=== PATIENT | male | born 1955 | race Caucasian/White ===

== ENCOUNTER 2018-01-05 09:53 | Outpatient (CLI) | payer OTHER | END 2018-01-05 09:54 | disposition home or self-care (01) | LOC: NS 09:53 | PROVIDERS: ATTEND Internal Medicine | DX: Z71.3 Dietary counseling and surveillance (principal); E11.9 Type 2 diabetes mellitus without complications; N18.3 Chronic kidney disease, stage 3 (moderate); Z79.84 Long term (current) use of oral hypoglycemic drugs | CPT/HCPCS: 97802 ==

== ENCOUNTER 2018-01-19 12:54 | Outpatient (CLI) | payer OTHER | END 2018-01-19 12:55 | disposition home or self-care (01) | LOC: NS 12:54 | PROVIDERS: ATTEND Internal Medicine | DX: Z71.3 Dietary counseling and surveillance (principal); E11.9 Type 2 diabetes mellitus without complications; N18.3 Chronic kidney disease, stage 3 (moderate); Z79.84 Long term (current) use of oral hypoglycemic drugs | CPT/HCPCS: 97803 ==

== ENCOUNTER 2018-02-10 13:06 | Outpatient (CLI) | payer OTHER ==
--- NOTE | 2018-02-10 15:00 | XRAY Report ---
RIGHT RIBS: 02/10/2018 CLINICAL INDICATION: Pain. FINDINGS: Frontal and oblique views of the right ribs were obtained, with marker at the site of maximal tenderness. There is no evidence of a displaced rib fracture. No foreign body is seen in the soft tissues. IMPRESSION: NO EVIDENCE OF A DISPLACED RIB FRACTURE. TD: 02/10/2018 14:58
== END 2018-02-10 13:07 | disposition home or self-care (01) ==
LOC: DI 13:06
PROVIDERS: ATTEND Internal Medicine
DX: R07.81 Pleurodynia (principal)

== ENCOUNTER 2018-04-13 15:05 | Outpatient (CLI) | payer OTHER ==
--- NOTE | 2018-04-13 17:29 | Ultrasound Report ---
ULTRASOUND RIGHT WRIST: 04/13/2018 CLINICAL INDICATION: Palpable abnormality. TECHNIQUE: Real-time scanning was performed with bank representative static images obtained. FINDINGS: Ultrasound of the palpable abnormality in the dorsal right wrist was performed. At this site, there is a 3.3 x 0.6 x 2.0 cm fluid collection, likely representing a synovial cyst. No solid mass is identified. IMPRESSION: LIKELY SYNOVIAL CYST, ACCOUNTING FOR THE PALPABLE ABNORMALITY. TD: 04/13/2018 15:39
--- NOTE | 2018-04-14 10:28 | XRAY Report ---
FOUR VIEW RIGHT WRIST: 04/13/2018 CLINICAL INDICATION: Swelling, mass. FINDINGS: AP, lateral, oblique, scaphoid views of the right wrist demonstrate severe osteoarthritic changes. There is an old, nonunion fracture of the scaphoid, and subluxation of the first carpal row. No radiopaque foreign body is seen in the soft tissues. IMPRESSION: OLD, NONUNION SCAPHOID FRACTURE, WITH SUBLUXATION OF THE FIRST CARPAL ROW AND SEVERE OSTEOARTHRITIC CHANGES. TD: 04/14/2018 10:22
== END 2018-04-13 15:06 | disposition home or self-care (01) ==
LOC: DI 15:05
PROVIDERS: ATTEND Internal Medicine
DX: M19.031 Primary osteoarthritis, right wrist (principal)
CPT/HCPCS: 76882

== ENCOUNTER 2020-07-10 12:47 | Outpatient (CLI) | payer MEDICARE ==
--- NOTE | 2020-07-10 16:39 | MRI Report ---
PROCEDURE: Lumbar Spine W/O INDICATIONS: PROGRESSIVE IMBALANCE,NUMBNESS/TINGLING IN LEGS TECHNIQUE: Noncontrast sagittal T1 spin echo and T2 fast echo, sagittal STIR, axial T1 and T2 fast spin echo thr ough the lumbar spine. In cases with scoliosis, additional coronal T2 fast spin echo may be performe d. COMPARISON: None. FINDINGS: Image quality: Excellent. Alignment and Curvature: There is straightening of normal lumbar curvature. There is trace retrolist hesis of L5 on S1. Bone Marrow: Marrow is of normal overall signal. Increased T1 and T2 signal are present at L2, L5 an d S1 suggestive of hemangiomas. Mild reactive endplate changes are present at L5-S1, minimal througho ut the remainder of the lumbar spine. No acute vertebral body compression fractures. Spinal Cord: Conus medullaris terminates at the L1 level. Visualized cord demonstrates normal signa l and size. Paraspinous Soft Tissues: No paravertebral masses. Discs: Moderate to severe desiccation is present from L3-4 through L5-S1, mild at L1-L2, L2-3. L1-L2: Minimal disc bulge without spinal stenosis or foraminal narrowing. Mild facet and ligamentu m flavum hypertrophy. L2-L3: Mild disc bulge with minimal canal narrowing. Mild rightforaminal narrowing. Facet and liga mentum flavum hypertrophy are present. L3-L4: Mild disc bulge with mild spinal stenosis. No foraminal narrowing. Facet and ligamentum flav um hypertrophy are present. L4-L5: Mild disc bulge with minimal to mild spinal stenosis. Minimal to mild bilateral foraminal na rrowing with facet and ligamentum flavum hypertrophy. L5-S1: Mild disc bulge including a left foraminal component. Mild to moderate spinal stenosis is pr esent. Severe right and moderate to severe left foraminal narrowing with slight nerve root surroundin g through the subarticular recess on the right. Facet hypertrophy is present. IMPRESSION: 1. Multilevel spinal stenosis overall most prominent at L3-4 secondary to disc bulge with contributin g effect of facet/ligamentum flavum arthropathy. 2. Multilevel foraminal narrowing most severe at L5-S1 secondary to retrolisthesis as well as facet a rthropathy. Reviewed by: Tori Bocanegra MD on 07/10/2020 4:37 PM PDT Approved by: Tori Bocanegra MD on 07/10/2020 4:37 PM PDT Station ID: [id number]
== END 2020-07-10 12:48 | disposition home or self-care (01) ==
LOC: DI 12:47
PROVIDERS: ATTEND Psychiatry & Neurology Neurology
DX: M43.17 Spondylolisthesis, lumbosacral region (principal); M51.36 Other intervertebral disc degeneration, lumbar region; M51.37 Other intervertebral disc degeneration, lumbosacral region; M47.816 Spondylosis without myelopathy or radiculopathy, lumbar region; M47.817 Spondylosis without myelopathy or radiculopathy, lumbosacral region; M48.061 Spinal stenosis, lumbar region without neurogenic claudication; M48.07 Spinal stenosis, lumbosacral region
CPT/HCPCS: 72148

== ENCOUNTER 2020-07-12 14:06 | Outpatient (CLI) | payer MEDICARE | END 2020-07-12 14:07 | disposition home or self-care (01) | LOC: LAB 14:06 | PROVIDERS: ATTEND Surgery | DX: Z01.812 Encounter for preprocedural laboratory examination (principal); K43.9 Ventral hernia without obstruction or gangrene; Z20.828 Contact with and (suspected) exposure to other viral communicable diseases | CPT/HCPCS: 93005; U0004 ==

== ENCOUNTER 2020-07-17 06:38 | Day surgery (SDC) | payer MEDICARE ==
[~2020-07-17 06:38] MED LIST: CEFAZOLIN SODIUM IN 0.9 % NACL 2 GM/100 ML BAG IV ONE
[2020-07-17] MEDS ORDERED: LACTATED RINGERS 1,000 ML IV ONE ×3 (06:55→10:40)
[2020-07-17] MEDS ORDERED: BUPIVACAINE 0.5% PF 30 ML VIAL SUBQ ONE ×2 (07:13→09:40)
--- NOTE | 2020-07-17 07:13 | ANESTHESIA ---
Pre-Anesthesia VS, & Labs - Diagnosis incisional hernia - Procedure Incisional hernia repair Vital Signs: Temp Pulse Resp BP Pulse Ox 36.9 C 55 L 18 126/81 H 96 07/17/20 06:56 07/17/20 06:56 07/17/20 06:56 07/17/20 06:56 07/17/20 06:56 Height 5 ft 9 in Weight (kg) 101.3 kg Body Mass Index 37.6 - NPO >8 hours - Lab Results Current Lab Results: Laboratory Tests 07/17/20 07:06: POC Whole Bld Glucose 119 H Lab results reviewed: Yes Home Medications and Allergies Home Medications: Ambulatory Orders Carvedilol 6.25 mg PO BID 07/12/20 Hydrochlorothiazide 12.5 mg PO DAILY 07/12/20 Losartan Potassium 25 mg PO QPM 07/12/20 oxyCODONE/ACET 5/325 [Percocet 5 mg/325 mg] 2 each PO Q4-6H MDD pain 07/12/20 Acetaminophen [Tylenol] 650 mg PO Q6H PRN 04/10/18 Amlodipine Besylate 10 mg PO DAILY 04/10/18 Aspirin 81 mg PO DAILY 04/10/18 Benzonatate 200 mg PO ONCE 04/10/18 Celecoxib 100 mg PO BID 04/10/18 Cetirizine [ZyrTEC] 10 mg PO DAILY 04/10/18 Fluticasone/Salmeterol [Advair 250-50 Diskus] 2 puffs IH DAILY 04/10/18 Ibuprofen [Motrin Ib] 200 mg PO TID PRN 04/10/18 Metformin HCl 1,000 mg PO BID 04/10/18 Pantoprazole Sodium 40 mg PO DAILY 04/10/18 Simvastatin 40 mg PO QPM 04/10/18 Carvedilol 6.25 mg PO BID 07/12/20 Hydrochlorothiazide 12.5 mg PO DAILY 07/12/20 Losartan Potassium 25 mg PO QPM 07/12/20 oxyCODONE/ACET 5/325 [Percocet 5 mg/325 mg] 2 each PO Q4-6H MDD pain 07/12/20 Allergies/Adverse Reactions: Allergies Allergy/AdvReac Type Severity Reaction Status Date / Time No Known Drug Allergies Allergy Verified 04/10/18 16:42 Anes History & Medical History - Anesthetic History Anesthesia Complications: reports: No previous complications Family history of Anesthesia Complications: Denies Family history of Malignant Hyperthermia: Denies - Medical History Cardiovascular: reports: Pulmonary embolism Pulmonary: reports: Asthma Gastrointestinal: reports: GERD, Diverticulitis Urinary: reports: Kidney stones Neuro: reports: Headaches, Migraines Musculoskeletal: reports: Osteoarthritis, Other Endocrine/Autoimmune: reports: Type 2 diabetes Smoking Status: Never smoker Other Past Medical History: Hx C3-5 ACDF - Surgical History General: Cholecystectomy, Bowel surgery, Other Eyes Ears Nose Throat (EENT): Tonsil/Adenoidectomy Urologic: Ureterolithotomy (stones) Orthopedic: Carpal Tunnel surgery, Spine surgery, Other Exam General: Alert, Oriented x3, Cooperative, No acute distress Dental: WNL Mouth Openin Fingerbreadth Neck Mobility: Reduced (slightly reduced, hx of ACDF, Still has decent neck extension with no pain or parathesia) Mallampati classification: II Respiratory: Lungs clear, Normal breath sounds Cardiovascular: Regular rate, Normal S1, Normal S2, No murmurs Plan Anesthesia Type: General, Epidural, Transverse Abdominis Plane (TAP) Block Regional Block: Per Surgeon's request for Post Op pain control Consent for Procedure(s) Verified and Reviewed: Yes Code Status: Attempt Resuscitation ASA classification: 3-Severe systemic disease Is this case an emergency?: No
[2020-07-17] MEDS ORDERED: LIDOCAINE 1%-EPI 1:100000 20 ML MDV SUBQ ONE ×2 (07:14→09:40)
[2020-07-17] MEDS ORDERED: MORPHINE 2 MG/ML CARPUJECT IVP PRN (07:22)
[2020-07-17] MEDS ORDERED: ePHEDrine 50 MG/ML VIAL IVP PRN (07:22)
[2020-07-17] MEDS ORDERED: ONDANSETRON 4 MG/2 ML VIAL IVP PRN ×2 (07:22→09:54)
[2020-07-17] MEDS ORDERED: METOCLOPRAMIDE 10 MG/2 ML VIAL IVP PRN (07:22)
[2020-07-17] MEDS ORDERED: ATROPINE ABBOJECT 1 MG/10 ML SYRINGE IVP PRN (07:22)
[2020-07-17] MEDS ORDERED: HYDROmorphone 0.5 MG/0.5 ML SYRINGE IVP PRN ×2 (07:22→09:47)
[2020-07-17] MEDS ORDERED: fentaNYL 100 MCG/2 ML VIAL IVP PRN (07:22)
[2020-07-17] MEDS ORDERED: NALOXONE 0.4 MG/ML VIAL IVP PRN (07:22)
[2020-07-17] MEDS ORDERED: BUPIVACAINE 0.5% PF 30 ML VIAL ONE (07:31)
[2020-07-17] MEDS ORDERED: LIDOCAINE 1%-EPI 1:100000 20 ML MDV ONE (07:31)
[2020-07-17] MEDS ORDERED: PROPOFOL 200 MG/20 ML VIAL IVP ONE (07:57)
[2020-07-17] MEDS ORDERED: NEOSTIGMINE 1 MG/1 ML 10 ML MDV IVP ONE (07:57)
[2020-07-17] MEDS ORDERED: GLYCOPYRROLATE 1 MG/5 ML VIAL IVP ONE (07:57)
[2020-07-17] MEDS ORDERED: DEXAMETHASONE 4 MG/ML VIAL IVP ONE (07:57)
[2020-07-17] MEDS ORDERED: LIDOCAINE-MPF 2% 5 ML VIAL IM ONE (07:57)
[2020-07-17] MEDS ORDERED: MIDAZOLAM 2 MG/2 ML VIAL IVP ONE (07:57)
[2020-07-17] MEDS ORDERED: fentaNYL 100 MCG/2 ML VIAL IVP ONE (07:57)
[2020-07-17] MEDS ORDERED: ONDANSETRON 4 MG/2 ML VIAL IVP ONE (07:57)
[2020-07-17] MEDS ORDERED: LACTATED RINGERS 1,000 ML IV SCH (08:00)
[2020-07-17] MEDS ORDERED: oxyCODONE 5 MG TABLET PO PRN (09:47)
[2020-07-17] MEDS ORDERED: SODIUM CHLORIDE FLUSH 0.9% 10 ML SYRINGE IVP PRN (09:47)
--- NOTE | 2020-07-17 10:11 | OPERATIVE REPORT ---
Operative Report - General Procedure Date: 07/17/20 Planned Procedure: Open incisional hernia repair with mesh Pre-Op Diagnosis: Incisional hernia Procedure Performed: Open incisional hernia repair with Ventralight ST mesh Post Op Diagnosis: Incisional hernia - Procedure Note Primary Surgeon: Sherly Anesthesia Provider: Santiago Anesthesia Technique: General LMA, Regional block Pathology: None Estimated Blood Loss (mL): 20 Indications: Painful hernia interfering with activities of daily living Findings: 10 x 13 cm incisional hernia superior to the umbilicus with a large sack containing large and small bowel and omentum Complications: None apparent - Other Other Information/Narrative: After obtaining informed consent, the patient was taken to the operating room and placed him in the supine position on the operating table. Following successful induction of general anesthesia, appropriate padding of all bony prominences and placement of appropriate monitors, the abdomen was prepped and draped in the standard surgical fashion. A time out was held per SCOAP protocol. All elements of the surgical safety checklist were followed before, during, and after the procedure. Following infiltration with local anesthetic create a field block, the upper abdominal incision was recreated and carried through the skin and subcutaneous tissue to the henia sack below. The sack was then carefully dissected from the overlying skin and underlying fascia and abdominal cavity. This required lysis of adhesion of 60 minutes to free the intraabdominal structures from the sack and create clear space on the internal abdominal wall for placement of the mesh. Once this process was complete, the defect was measured and determined to be 10 x 13 cm. I elected to repair the defect with a 15 x 20 cm graft of Ventralight ST mesh. 4 anchor sutures were placed through the mesh and then through the fascia at 12, 3, 6, and 9 o'clock. The internal scaffolding of the mesh was removed and the sutures tied. The edge of the mesh was then sewn to the posterior fascia with running suture. The repair was checked for defects The wound was irrigated with warm saline solution and aspirated free of all fluid and particulate matter. The abdominal wall was close in layers and the skin was reapproximate with an Insorb 2030 stapler. Dermabond was applied to the skin. All sponge, needle, and instrument counts were correct at the conclusion of the case. Anesthesia provided a TAP block with ultrasound guidance, The patient was allowed to awaken from anesthesia without difficulty and taken to the post anesthesia care unit in good condition.
--- NOTE | 2020-07-17 10:30 | ANESTHESIA POST OP EVALUATION ---
Anesthesia Post Eval - Post Anesthesia Eval Vitals: Last Vital Signs Temp 36.7 C 07/17/20 10:27 Pulse 60 07/17/20 10:27 Resp 17 07/17/20 10:27 BP 108/68 07/17/20 10:27 Pulse Ox 93 07/17/20 10:27 CV Function Including HR & BP: positive: Stable Pain Control: positive: Satisfactory Nausea & Vomiting: positive: Negative Mental Status: positive: Baseline Respiratory Status: Airway Patent Hydration Status: Satisfactory Anesthesia Complications: positive: None
[2020-07-17] MEDS: MULTIVITAMIN 10 ML, FOLIC ACID INJ 1 MG, THIAMINE INJ 100 MG, MAGNESIUM SULFATE 2 GM in... IV SCH ×5 (11:34)
[2020-07-17] MEDS: KETOROLAC 15 MG/ML VIAL IVP SCH ×2 (11:57→18:07)
[2020-07-17] MEDS ORDERED: CYANOCOBALAMIN 1,000 MCG/ML VIAL IM ONE (12:00)
--- NOTE | 2020-07-17 13:03 | PHARMACY PROGRESS NOTE ---
- Best Possible Medication History Admit Date and Time: Processed by: Pharmacy Medication History completed: Yes Patient Interview: Completed Secondary Source(s): Written medication list, Pharmacy records, Insurance records As the person ultimately responsible for medication therapy, providers are able to order a medication from an existing home medication list in [facility] via the "Reconcile Routine" prior to Confirmation of that medication by java support engineer. Such practice is discouraged except when the physician, in their clinical judgment, deems that a medical need exists for a medication without regard to previous use.
[2020-07-17] MEDS: ACETAMINOPHEN 1,000 MG/100 ML 100 ML IV SCH ×2 (13:52→20:20)
[2020-07-17] MEDS: ceFAZolin 2 GM in SODIUM CHLORIDE 0.9% 100ML 100 ML IV SCH (16:44)
[2020-07-17] MEDS: metFORMIN 500 MG TABLET PO SCH (16:52)
[2020-07-17] MEDS: SODIUM CHLORIDE FLUSH 0.9% 10 ML SYRINGE IVP SCH (16:53)
[2020-07-17] MEDS ORDERED: BUDESONIDE 0.5 MG/2 ML NEB INH SCH (19:00)
[2020-07-17] MEDS ORDERED: FORMOTEROL FUMARATE NEB 20 MCG/2 ML INH SCH (19:00)
[2020-07-17] MEDS: carvediloL 3.125 MG TABLET PO SCH (20:39)
[2020-07-17] MEDS: polyethylene glycoL 3350 17 GM PACKET PO SCH (20:41)
[2020-07-17] MEDS ORDERED: LOSARTAN 50 MG TABLET PO SCH (21:00)
[2020-07-17] MEDS ORDERED: ATORVASTATIN 10 MG TABLET PO SCH (21:00)
[2020-07-17] MEDS ORDERED: SODIUM CHLORIDE 0.9% 100ML 100 ML IV ONE (23:52)
[2020-07-18] MEDS: ceFAZolin 2 GM in SODIUM CHLORIDE 0.9% 100ML 100 ML IV SCH (00:06)
[2020-07-18] MEDS: SODIUM CHLORIDE FLUSH 0.9% 10 ML SYRINGE IVP SCH ×2 (00:06→08:51)
[2020-07-18] MEDS: KETOROLAC 15 MG/ML VIAL IVP SCH ×3 (00:06→11:52)
[2020-07-18] MEDS: ACETAMINOPHEN 1,000 MG/100 ML 100 ML IV SCH ×4 (01:54→13:14)
[2020-07-18] MEDS ORDERED: PANTOPRAZOLE 40 MG TABLET PO SCH (07:00)
[2020-07-18] MEDS: polyethylene glycoL 3350 17 GM PACKET PO SCH (08:22)
[2020-07-18] MEDS: carvediloL 3.125 MG TABLET PO SCH (08:23)
[2020-07-18] MEDS: MULTIVITAMIN 10 ML, FOLIC ACID INJ 1 MG, THIAMINE INJ 100 MG, MAGNESIUM SULFATE 2 GM in... IV SCH ×5 (08:30)
[2020-07-18] MEDS: metFORMIN 500 MG TABLET PO SCH (08:50)
[2020-07-18] MEDS ORDERED: CETIRIZINE 10 MG TABLET PO SCH (09:00)
[2020-07-18] MEDS ORDERED: ENOXAPARIN 40 MG/0.4 ML SYRINGE SUBQ SCH (09:00)
[2020-07-18] MEDS ORDERED: hydroCHLOROthiazide 12.5 MG CAPSULE PO SCH (09:00)
[2020-07-18 13:15] VITALS: BP 125/76
[2020-07-18] MEDS ORDERED: IBUPROFEN 600 MG TABLET PO PRN (13:30)
[2020-07-18] MEDS ORDERED: ONDANSETRON 4 MG/2 ML VIAL IVP PRN (13:30)
[2020-07-18] MEDS ORDERED: ACETAMINOPHEN 325 MG TABLET PO PRN (13:30)
[2020-07-18] MEDS ORDERED: oxyCODONE 5 MG TABLET PO PRN (13:30)
== END 2020-07-18 14:44 | disposition home or self-care (01) ==
LOC: SDS 06:38 → MS2 10:39 → SDS 07-18 14:44
PROVIDERS: ATTEND Surgery
PROC: 0WUF0JZ Supplement Abdominal Wall with Synthetic Substitute, Open Approach (ICD-10-PCS; principal; 2020-07-17 07:30)
DX: K43.2 Incisional hernia without obstruction or gangrene (principal); E11.9 Type 2 diabetes mellitus without complications; I10 Essential (primary) hypertension; J45.909 Unspecified asthma, uncomplicated; Z79.84 Long term (current) use of oral hypoglycemic drugs
CPT/HCPCS: 49560; 49568; A9270; J0131; J0690; J1650; J3411; J7120

== ENCOUNTER 2020-08-07 21:13 | Inpatient (IN) | payer MEDICARE ==
--- NOTE | 2020-08-07 21:28 | ED Physician Documentation ---
PD HPI FEVER - Stated complaint Stated Complaint: FEVER/DIZZY - History obtained from History obtained from: Patient - History of Present Illness Timing - onset: Enter time (02:30), Today Timing details: Abrupt onset Pain level now: 3 (generalized myalgias) Associated symptoms: Chills, Rigors, Other (mild nausea but no vomiting). No: Sinus pain, Sore throat, Dry cough, Productive cough, Chest pain, Dyspnea, Abdominal pain, Urinary symptoms Contributing factors: No: Sick contact, Travel Recently seen: Surgery (3 weeks ago (herniorrhaphy)) Review of Systems Constitutional: reports: Fever, Chills, Myalgias, Sweats Eyes: reports: Reviewed and negative Ears: reports: Reviewed and negative Nose: reports: Reviewed and negative Throat: reports: Reviewed and negative Cardiac: reports: Reviewed and negative Respiratory: reports: Dyspnea (mild). denies: Cough, Hemoptysis, Wheezing GI: reports: Nausea (mild), Constipation (chronic). denies: Abdominal Pain, Vomiting, Diarrhea : denies: Dysuria, Frequency Skin: denies: Rash Musculoskeletal: reports: Reviewed and negative Neurologic: reports: Generalized weakness. denies: Focal weakness, Numbness PD PAST MEDICAL HISTORY - Past Medical History Cardiovascular: Pulmonary embolism Respiratory: Asthma Neuro: Headaches, Migraines Endocrine/Autoimmune: Type 2 diabetes GI: GERD, Diverticulitis : Kidney stones HEENT: None Musculoskeletal: Osteoarthritis, Other - Past Surgical History General: Cholecystectomy, Bowel surgery, Other Ortho: Carpal Tunnel surgery, Spine surgery, Other HEENT: Tonsil/Adenoidectomy - Present Medications Home Medications: Ambulatory Orders Medication Instructions Recorded Confirmed Acetaminophen [Tylenol] 650 mg PO Q6H PRN 04/10/18 07/12/20 Amlodipine Besylate 10 mg PO DAILY 04/10/18 07/17/20 Aspirin 81 mg PO DAILY 04/10/18 07/17/20 Benzonatate 200 mg PO ONCE PRN 04/10/18 07/12/20 Celecoxib 100 mg PO BID 04/10/18 07/17/20 Cetirizine [ZyrTEC] 10 mg PO DAILY 04/10/18 07/17/20 Fluticasone/Salmeterol [Advair 2 puffs IH DAILY 04/10/18 07/17/20 250-50 Diskus] Ibuprofen [Motrin Ib] 200 mg PO TID PRN 04/10/18 07/12/20 Metformin HCl 1,000 mg PO BID 04/10/18 07/12/20 Pantoprazole Sodium 40 mg PO DAILY 04/10/18 07/17/20 Simvastatin 40 mg PO QPM 04/10/18 07/17/20 Carvedilol 6.25 mg PO BID 07/12/20 07/17/20 Hydrochlorothiazide 12.5 mg PO DAILY 07/12/20 07/17/20 Losartan Potassium 25 mg PO QPM 07/12/20 07/17/20 oxyCODONE/ACET 5/325 [Percocet 5 2 tab PO Q4-6H MDD pain 07/12/20 07/17/20 mg/325 mg] Cyanocobalamin (Vitamin B-12) 1 ml IM Q28D 07/17/20 07/17/20 [Cyanocobalamin Injection] oxyCODONE [Roxicodone] 5 mg PO Q4-6H PRN #10 tablet 07/18/20 - Allergies Allergies/Adverse Reactions: Allergies Allergy/AdvReac Type Severity Reaction Status Date / Time No Known Drug Allergies Allergy Verified 04/10/18 16:42 - Social History Smoking Status: Never smoker PD ED PE NORMAL - Vitals Vital signs reviewed: Yes - General General: Alert and oriented X 3, Well developed/nourished, Other (mild diaphoresis, appears mildly anxious) - HEENT HEENT: Moist mucous membranes - Neck Neck: Supple, no meningeal sign, No JVD - Respiratory Respiratory: No respiratory distress, Clear bilaterally - Abdomen Abdomen: Soft, Non tender, Non distended, Other (midline surgical incision site is c/d/i) - Back Back: No CVA TTP - Derm Derm: Normal color - Extremities Extremities: No edema PD ED PE EXPANDED - Cardiac Cardiac: Abnormal Rhythm (regular baseline with frequent extra beats, mostly paired beats). No: Murmur Present Results - Vitals Vitals: Vital Signs - 24 hr 08/07/20 08/07/20 08/07/20 21:15 21:31 21:41 Temperature 38.6 C H Heart Rate 100 91 76 Respiratory 25 H 14 22 Rate Blood Pressure 100/58 L 87/63 L 105/60 O2 Saturation 95 96 94 08/07/20 08/08/20 08/08/20 22:00 00:24 00:30 Temperature 36.5 C Heart Rate 77 80 Respiratory 21 24 Rate Blood Pressure 112/55 L 105/58 L O2 Saturation 94 95 Oxygen O2 Source Room air - EKG (time done) No standard instances Rate: Rate (enter#) (100) Rhythm: Other (atrial bigeminy) [place]: Normal Intervals: Normal DE QRS: Normal Ischemia: Normal ST segments - Labs Labs: Laboratory Tests 08/07/20 08/07/20 08/07/20 21:40 21:40 21:50 WBC 18.3 H RBC 5.05 Hgb 15.3 Hct 44.6 MCV 88.3 MCH 30.3 MCHC 34.3 RDW 13.7 Plt Count 216 MPV 9.2 Neut # (Auto) 15.2 H Lymph # (Auto) 1.3 L Keith # (Auto) 1.4 H Eos # (Auto) 0.1 Baso # (Auto) 0.1 Absolute Nucleated RBC 0.00 Nucleated RBC % 0.0 Sodium 136 Potassium 3.6 Chloride 101 Carbon Dioxide 21 Anion Gap 14.0 H BUN 18 Creatinine 1.2 Estimated GFR (MDRD) 61 L Glucose 142 H Lactic Acid 2.2 Calcium 9.2 Total Bilirubin 1.8 H AST 18 ALT 24 Alkaline Phosphatase 56 Total Protein 7.2 Albumin 3.7 Globulin 3.5 Albumin/Globulin Ratio 1.1 Urine Color Urine Clarity Urine pH Ur Specific [place] Urine Protein Urine Glucose (UA) Urine Ketones Urine Occult Blood Urine Nitrite Urine Bilirubin Urine Urobilinogen Ur Leukocyte Esterase Urine RBC Urine WBC Ur Squamous Epith Cells Urine Bacteria Urine Mucus Urine Culture Comments 08/07/20 23:18 WBC RBC Hgb Hct MCV MCH MCHC RDW Plt Count MPV Neut # (Auto) Lymph # (Auto) Keith # (Auto) Eos # (Auto) Baso # (Auto) Absolute Nucleated RBC Nucleated RBC % Sodium Potassium Chloride Carbon Dioxide Anion Gap BUN Creatinine Estimated GFR (MDRD) Glucose Lactic Acid Calcium Total Bilirubin AST ALT Alkaline Phosphatase Total Protein Albumin Globulin Albumin/Globulin Ratio Urine Color YELLOW Urine Clarity CLEAR Urine pH 7.0 Ur Specific [place] 1.020 Urine Protein TRACE Urine Glucose (UA) NEGATIVE Urine Ketones TRACE Urine Occult Blood NEGATIVE Urine Nitrite NEGATIVE Urine Bilirubin NEGATIVE Urine Urobilinogen 2 H Ur Leukocyte Esterase SMALL H Urine RBC 0-5 Urine WBC 11-25 H Ur Squamous Epith Cells RARE Squamous Urine Bacteria Rare Urine Mucus Moderate Strands Urine Culture Comments INDICATED - Rads (name of study) chest xray Radiology: Prelim report reviewed, See rad report CT A/P Radiology: Prelim report reviewed, See rad report PD MEDICAL DECISION MAKING - ED course Complexity details: reviewed old records, reviewed results, re-evaluated patient, considered differential, d/w patient, d/w family ED course: Early in ED stay, patient had episode of generalized weakness, nausea, feeling lightheaded and like he might pass out; this correlated with a single hypotensive SBP (upper 80s, although diastolic was in 60s). WBC 18.3 and febrile on presentation and thus sepsis protocol followed. Of note, his subsequent blood pressure readings were not hypotensive (fluid bolus had been started) and he looked well and reported feeling well on subsequent repeated reevaluations. His abdominal exam is benign; there is no tenderness, erythema, fluctuance. D/W Dr. Dubois including CT results; does not have findings on tests nor exam to suggest a source for his fever that would be related to his recent surgery. D/W Dr. Presley, accepts admission to hospitalist service. - Sepsis Event Current Stage of Sepsis: Sepsis Initial Hypotension: SBP less than 90 mmHg Possible source of Sepsis: Unknown Mental/Cognitive Status: Alert/Oriented X3 Capillary refill: Less than 2 seconds Peripheral Pulse Strength: 3+ Normal Peripheral Pulse Location: Radial Bedside ultrasound performed: No Departure - Departure Disposition: 66 [facility] DC/Xfer Clinical Impression: Fever Condition: Stable Discharge Date/Time: 08/08/20 01:45
[2020-08-07] MEDS ORDERED: SODIUM CHLORIDE 0.9% IV STA (21:50)
[2020-08-07 22:08] LABS: BASOPHILS # (AUTO) 0.1 10^3/uL (0.0-0.1); BASOPHILS % (AUTO) 0.4 %; EOSINOPHILS # (AUTO) 0.1 10^3/uL (0.0-0.7); EOSINOPHILS % (AUTO) 0.3 %; HGB - HEMOGLOBIN 15.3 g/dL (14.0-18.0); LYMPHOCYTES # (AUTO) 1.3 10^3/uL (1.5-3.5); LYMPHOCYTES % (AUTO) 7.2 %; MEAN CORPUSCULAR HEMOGLOBIN 30.3 pg (27.0-31.0); MEAN CORPUSCULAR HGB CONC 34.3 g/dL (32.0-36.0); MEAN CORPUSCULAR VOLUME 88.3 fL (80.0-94.0); MEAN PLATELET VOLUME 9.2 fL (7.4-11.4); MONOCYTES # (AUTO) 1.4 10^3/uL (0.0-1.0); MONOCYTES % (AUTO) 7.8 %; NEUTROPHILS # (AUTO) 15.2 10^3/uL (1.5-6.6); NEUTROPHILS % (AUTO) 83.2 %; PLT - PLATELET COUNT 216 10^3/uL (130-450); RED BLOOD COUNT 5.05 10^6/uL (4.70-6.10); RED CELL DISTRIBUTION WIDTH 13.7 % (12.0-15.0); WHITE BLOOD COUNT 18.3 x10^3/uL (4.8-10.8)
[2020-08-07] MEDS ORDERED: metroNIDAZOLE 500 MG/100 ML 500 MG/100 ML BAG IV STA (22:10)
[2020-08-07] MEDS ORDERED: VANCOMYCIN INJ 2.5 GM in SODIUM CHLORIDE 0.9% 500 ML IV STA (22:10)
[2020-08-07] MEDS ORDERED: CEFEPIME 2 GM in SODIUM CHLORIDE 0.9% MINIBAG 100 ML IV STA (22:10)
[2020-08-07 22:15] LABS: ALBUMIN 3.7 g/dL (3.2-5.5); ALBUMIN/GLOBULIN RATIO 1.1 (1.0-2.2); BILIRUBIN,TOTAL 1.8 mg/dL (0.2-1.0); CALCIUM 9.2 mg/dL (8.5-10.3); CREATININE 1.2 mg/dL (0.6-1.2); TOTAL PROTEIN 7.2 g/dL (6.7-8.2)
[2020-08-07] MEDS ORDERED: VANCOMYCIN 1 GM VIAL ONE ×2 (22:26→22:41)
[2020-08-07] MEDS ORDERED: IBUPROFEN 400 MG TABLET PO STA (22:28)
[2020-08-07] MEDS ORDERED: IOVERSOL 320 100 ML VIAL IVP ONE (23:41)
[2020-08-07 23:45] LABS: BACTERIA,URINE Rare /HPF (None Seen); BILIRUBIN,URINE NEGATIVE (NEGATIVE); CLARITY,URINE CLEAR (CLEAR); GLUCOSE, URINE (UA) NEGATIVE (NEGATIVE); KETONES,URINE (UA) TRACE mg/dL (NEGATIVE); LEUKOCYTE ESTERASE, URINE SMALL (NEGATIVE); MUCUS,URINE Moderate Strands; NITRITE,URINE NEGATIVE (NEGATIVE); OCCULT BLOOD,URINE NEGATIVE (NEGATIVE); PROTEIN,URINE TRACE mg/dL (NEGATIVE); RBC,URINE 0-5 /HPF (0-5); SQUAMOUS EPITHELIAL CELL,UR RARE Squamous (<= Few); UROBILINOGEN,URINE 2 E.U./dL (NORMAL)
[2020-08-08] MEDS ORDERED: IOVERSOL 320 100 ML VIAL IVP ONE (00:06)
[2020-08-08] MEDS ORDERED: ONDANSETRON 4 MG/2 ML VIAL IVP PRN (00:54)
--- NOTE | 2020-08-08 00:58 | HISTORY & PHYSICAL EXAMINATION ---
Chief Complaint - Chief Complaint Chief Complaint: Fever History of Present Illness - Admitted From Admitted From:: Home - History Obtained From Records Reviewed: Yes History obtained from: Patient, ER Physician, EMR - History of Present Illness HPI Comment/Other: This is a 64-year-old male with a past medical history significant for type 2 diabetes mellitus, hypertension, history of pulmonary embolism who presents today complaining of fever and chills that began at around 2 AM. He states he woke up to a.m. with severe rigors and chills and he noted that his temperature was over 102 F. He continue to measure his temperature throughout the day and it went as high as 104 F. He took NyQuil with improvement in his fever. His fever returned again and so he contacted his primary care provider who asked him to contact the [facility]. He was then asked to contact his surgeon given he had an incisional hernia repair on July 17. His surgeon's office recommended that he go to the emergency department if his fever persists greater than 102 F and this evening his temperature remained quite elevated. He reports a little nausea but no vomiting. He felt dizzy and lightheaded briefly while here in the emergency department when he was hypotensive but this has since resolved. He does report some dysuria but denies urgency/hematuria. He reports no abdominal pain. Denies any chest pain or dyspnea. He reports no recent sick contacts. He has not been leaving the house much but when he does he wears a mask on a regular basis. In the emergency department, he was found to be febrile with a temperature of 38.6 C. Initial heart rate is 100. His initial blood pressure is 100/58 and this decreased to 87/63. He was given over 2 L of lactated Ringer's with improvement in his blood pressure. He was not tachypneic and was saturating well on room air. His labs are significant for a white count of 18.3 with a left shift. His lactic acid was 2.2. He was checked for influenza which was negative. His urinalysis was suggestive of infection. He underwent a CT of the abdomen and pelvis with IV contrast which showed a fluid collection at the site of the hernia repair which is likely a seroma. There was concern for possible cystitis on imaging. He received vancomycin, cefepime, Flagyl IV in the emergency department. Given the above findings, medicine was consulted for admission. I did discuss goals of care wtih the patient and he would like to be a full code. History - Past Medical History Cardiovascular: reports: Pulmonary embolism Respiratory: reports: Asthma Neuro: reports: Headaches, Migraines Endocrine/Autoimmune: reports: Type 2 diabetes GI: reports: GERD, Diverticulitis : reports: Kidney stones HEENT: reports: None Musculoskeletal: reports: Osteoarthritis, Other MRSA Hx?: No - Past Surgical History General: reports: Cholecystectomy, Bowel surgery, Other (Hernia repair) Ortho: reports: Carpal Tunnel surgery, Spine surgery HEENT: reports: Tonsil/Adenoidectomy - Family & Social History Family History Comment/Other: He reports his father from myocardial infarction. He was also an alcoholic and smoked quite a bit. His mother from heart failure. Living arrangement: At home Living Situation: With spouse/s.o. Social History Notes: He lives at home with his , Mary. They moved to [facility] over 3 years ago after previously living in [place]. 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 He would travel to [facility] frequently for work. He has never smoked and does not drink alcohol at all. Meds/Allgy - Home Medications Home Medications: Ambulatory Orders Medication Instructions Recorded Confirmed Acetaminophen [Tylenol] 650 mg PO Q6H PRN 04/10/18 07/12/20 Amlodipine Besylate 10 mg PO DAILY 04/10/18 07/17/20 Aspirin 81 mg PO DAILY 04/10/18 07/17/20 Benzonatate 200 mg PO ONCE PRN 04/10/18 07/12/20 Celecoxib 100 mg PO BID 04/10/18 07/17/20 Cetirizine [ZyrTEC] 10 mg PO DAILY 04/10/18 07/17/20 Fluticasone/Salmeterol [Advair 2 puffs IH DAILY 04/10/18 07/17/20 250-50 Diskus] Ibuprofen [Motrin Ib] 200 mg PO TID PRN 04/10/18 07/12/20 Metformin HCl 1,000 mg PO BID 04/10/18 07/12/20 Pantoprazole Sodium 40 mg PO DAILY 04/10/18 07/17/20 Simvastatin 40 mg PO QPM 04/10/18 07/17/20 Carvedilol 6.25 mg PO BID 07/12/20 07/17/20 Hydrochlorothiazide 12.5 mg PO DAILY 07/12/20 07/17/20 Losartan Potassium 25 mg PO QPM 07/12/20 07/17/20 oxyCODONE/ACET 5/325 [Percocet 5 2 tab PO Q4-6H MDD pain 07/12/20 07/17/20 mg/325 mg] Cyanocobalamin (Vitamin B-12) 1 ml IM Q28D 07/17/20 07/17/20 [Cyanocobalamin Injection] oxyCODONE [Roxicodone] 5 mg PO Q4-6H PRN #10 tablet 07/18/20 - Allergies Allergies/Adverse Reactions: Allergies Allergy/AdvReac Type Severity Reaction Status Date / Time No Known Drug Allergies Allergy Verified 04/10/18 16:42 Review of Systems - Constitutional Constitutional: reports: Fatigue, Fever, Chills, Malaise - Ears, Nose & Throat Ears, Nose & Throat: denies: Nasal congestion, Sore throat - Cardiovascular Cariovascular: denies: Palpitations, Chest pain, Exertional dyspnea, Decr. exercise tolerance - Respiratory Respiratory: denies: Cough, SOB at rest, SOB with exertion - Gastrointestinal Gastrointestinal: reports: Diarrhea (Chronic), Nausea. denies: Abdominal pain, Constipation, Vomiting - Genitourinary Genitourinary: reports: Dysuria. denies: Frequency, Urgency, Hematuria, Flank pain - Musculoskeletal Musculoskeletal: denies: Muscle pain, Muscle weakness - Integumentary Integumentary: denies: Rash - Neurological Neurological: denies: General weakness, Focal weakness, Dizziness, Numbness - Hematologic/Lymphatic Hematologic/Lymphatic: denies: Bleeding tendencies - All Other Systems All Other Systems: reports: Reviewed and negative Prior Level of Functionality: He is independent with his ADLs. Exam - Vital Signs Reviewed Vital Signs: Yes Vital Signs: Vital Signs x48h Temp Pulse Resp BP Pulse Ox 08/08/20 00:30 80 24 105/58 L 95 08/08/20 00:24 36.5 C 08/07/20 22:00 77 21 112/55 L 94 08/07/20 21:41 76 22 105/60 94 08/07/20 21:31 91 14 87/63 L 96 08/07/20 21:15 38.6 C H 100 25 H 100/58 L 95 - Physical Exam General Appearance: positive: No acute distress, Alert Eyes Bilateral: positive: Normal inspection, Conjunctivae nml ENT: positive: ENT inspection nml Neck: positive: Nml inspection Respiratory: positive: No respiratory distress. negative: Wheezes, Rales Cardiovascular: positive: Regular rate & rhythm, No murmur, Extrasystoles. negative: Tachycardia, Bradycardia, Systolic murmur Abdomen: positive: Non-tender, No distention, Other (The incision site appears clean dry and intact. There does appear to be a fluid collection at the superior aspect of the incision. This is nontender. No erythema or purulent discharge noted.). negative: Tenderness Skin: positive: No rash, Warm, Dry Extremities: positive: Full ROM, No pedal edema Neurologic/Psychiatric: positive: Oriented x3, Motor nml. negative: Disoriented to person, Disoriented to place, Disoriented to time Sepsis Event Note (H) - Evaluation Current Stage of Sepsis: Sepsis Possible source of Sepsis: positive: Genitourinary - Sepsis Criteria Sepsis Criteria: Recorded Temperature greater than 38.3C or Less than 36C, R ecorded Heart Rate greater than 90 bpm, WBC count greater than 12,000 or less than 4000 Conclusion/Plan - Problem List (1) Sepsis Conclusion/Plan: This is believed to be secondary to urinary tract infection. His urinalysis is suggestive of infection. Presented with fevers, tachycardia, hypotension, leukocytosis. His lactic acid is normal. He was hypotensive but responded well to IV fluids. Influenza is negative. COVID is pending. CT of the abdomen pelvis did not reveal any other obvious source of infection. We will treat him empirically with vancomycin and meropenem IV. Tenuous IV hydration. We will follow up blood and urine cultures. Follow-up COVID testing. Trend his white count and monitor fever curve. (2) UTI (urinary tract infection) Conclusion/Plan: This is believed to be the source of his sepsis. His urinalysis suggestive of infection. Imaging did not reveal any obstruction but was concerning for cystitis. He does endorse dysuria. We will treat him empirically with meropenem and vancomycin IV. Follow-up urine culture and de-escalate antibiot ics as clinically indicated. (3) Abdominal wall seroma Conclusion/Plan: This is evident on CT of the abdomen and pelvis. Abdominal exam is unremarkable and do not suspect that this is infected at this time. We will continue to monitor and consult general surgery if necessary. (4) Type 2 diabetes mellitus Conclusion/Plan: He is on metformin at home. We will place him on a carb controlled diet and a sliding scale. (5) History of pulmonary embolism Conclusion/Plan: He has a history of a provoked pulmonary embolism back in 2012. He is no longer anticoagulation. Continue baby aspirin. (6) Hypertension Conclusion/Plan: He is on multiple antihypertensives at home. He is currently normotensive but was initially hypotensive upon arrival to the emergency department. He responded well to IV fluids. We will hold his home antihypertensives in the setting of sepsis. We will resume when clinically indicated. (7) Atrial bigeminy Conclusion/Plan: His EKG is consistent with atrial bigeminy. It is a sinus rhythm with frequent PACs. He is asymptomatic. We will check a TSH in the morning. We will resume his home carvedilol when his blood pressure can tolerate it. - Lab Results Lab results reviewed: Yes Fish Bones: 08/08/20 04:51 08/08/20 04:51 - Diagnostic Imaging Results Diagnostic Imaging Results: positive: Final report reviewed - EKG Results EKG Interpreted Independently: Yes EKG Findings: His EKG shows a sinus rhythm with frequent PACs consistent with atrial bigeminy. No obvious ischemic changes. Core Measures - Anticipated LOS I expect patient to be DC'd or transferred within 96 hours.: Yes - Issues Hospital Issues and Management Plan: 64-year-old male who presents today with fever found to be septic likely secondary to urinary tract infection. CT of the abdomen pelvis also revealed a seroma. Will treat with IV antibiotics and follow-up cultures. - DVT/VTE - Prophylaxis VTE/DVT Device ordered at admit?: Yes VTE/DVT Prophylaxis med ordered at admit?: Yes
[2020-08-08] MEDS ORDERED: LACTATED RINGERS 1,000 ML IV ONE (01:58)
[2020-08-08] MEDS: SODIUM CHLORIDE FLUSH 0.9% 10 ML SYRINGE IVP PRN (02:44)
[2020-08-08] MEDS: SODIUM CHLORIDE FLUSH 0.9% 10 ML SYRINGE IVP SCH ×3 (02:50→18:42)
[2020-08-08] MEDS: LACTATED RINGERS 1,000 ML IV SCH ×2 (03:46→16:56)
[2020-08-08] MEDS: MEROPENEM 1 GM in SODIUM CHLORIDE 0.9% MINIBAG 100 ML IV SCH ×3 (04:49→20:10)
[2020-08-08 05:22] LABS: BASOPHILS # (AUTO) 0.1 10^3/uL (0.0-0.1); BASOPHILS % (AUTO) 0.5 %; EOSINOPHILS # (AUTO) 0.1 10^3/uL (0.0-0.7); EOSINOPHILS % (AUTO) 0.4 %; HGB - HEMOGLOBIN 13.4 g/dL (14.0-18.0); LYMPHOCYTES # (AUTO) 1.7 10^3/uL (1.5-3.5); LYMPHOCYTES % (AUTO) 10.7 %; MEAN CORPUSCULAR HEMOGLOBIN 30.7 pg (27.0-31.0); MEAN CORPUSCULAR VOLUME 90.2 fL (80.0-94.0); MEAN PLATELET VOLUME 9.2 fL (7.4-11.4); MONOCYTES # (AUTO) 0.8 10^3/uL (0.0-1.0); MONOCYTES % (AUTO) 5.2 %; NEUTROPHILS # (AUTO) 13.3 10^3/uL (1.5-6.6); NEUTROPHILS % (AUTO) 82.3 %; PLT - PLATELET COUNT 179 10^3/uL (130-450); RED BLOOD COUNT 4.37 10^6/uL (4.70-6.10); RED CELL DISTRIBUTION WIDTH 13.8 % (12.0-15.0); WHITE BLOOD COUNT 16.1 x10^3/uL (4.8-10.8)
[2020-08-08 05:37] LABS: CREATININE 1.1 mg/dL (0.6-1.2); MAGNESIUM 1.4 mg/dL (1.7-2.8); PHOSPHORUS 2.9 mg/dL (2.5-4.6)
[2020-08-08] MEDS: ACETAMINOPHEN 325 MG TABLET PO PRN ×3 (06:56→22:42)
--- NOTE | 2020-08-08 08:39 | XRAY Report ---
PROCEDURE: Chest 1 View X-Ray INDICATIONS: fever TECHNIQUE: One view of the chest was acquired. COMPARISON: None available FINDINGS: Surgical changes and devices: None. Lungs and pleura: No pleural effusions or pneumothorax. Lungs are clear. Mediastinum: Mediastinal contours appear normal. Heart size is normal. Bones and chest wall: No suspicious bony lesions. Overlying soft tissues appear unremarkable. IMPRESSION: 1. No acute process. 2. Concordant with preliminary report. Reviewed by: Heather Macias MD on 08/08/2020 8:38 AM PDT Approved by: Heather Macias MD on 08/08/2020 8:38 AM PDT Station ID: [id number]
[2020-08-08] MEDS: INSULIN ASPART 300 UNIT/3 ML PEN SUBQ SCH ×4 (08:54→20:09)
[2020-08-08] MEDS: ENOXAPARIN 40 MG/0.4 ML SYRINGE SUBQ SCH (08:56)
--- NOTE | 2020-08-08 08:56 | CT Report ---
PROCEDURE: Abdomen/Pelvis W INDICATIONS: fever, recent surgery CONTRAST: IV CONTRAST: Optiray 320 ml: 100 PO CONTRAST: *NO PO CONTRAST TECHNIQUE: After the administration of 100 cc Optiray 320 IV contrast, 5 mm thick sections acquired from the nancy phragms to the symphysis. 5 mm thick coronal and sagittal reformats were acquired. For radiation do se reduction, the following was used: automated exposure control, adjustment of mA and/or kV accordi ng to patient size. COMPARISON: None. FINDINGS: Image quality: Excellent. ABDOMEN: Lung bases: Lung bases are clear. Heart size is normal. Solid organs: Mild hepatomegaly and hepatic hypodensity suggesting steatosis. Kidneys, spleen, adren al glands, and pancreas are normal. The gallbladder surgically absent. Peritoneum and bowel: Bowel loops demonstrate normal wall thickness and caliber. No free fluid or a ir. Nodes and vessels: No retroperitoneal or mesenteric adenopathy by size criteria. Aorta and inferior vena cava are normal in size. Miscellaneous: There is a wide necked, small fat-containing outpouching at herniorrhaphy site, at, an d just the left of midline in the supraumbilical region. A small amount of fluid at, and just outside the hernia sac is present caudally, likely postoperative seroma. No peripherally enhancing fluid col lection.. There are surgical clips and imbricated soft tissues of the anterior abdominal wall in the lower abdomen suggesting a partial abdominoplasty. No evidence of internal fluid collection. There is a healing vertical incision superficial to this. Surgical clips in the subcutaneous tissue are also present. PELVIS: Genitourinary: Bladder wall is mildly diffusely thickened. The prostate gland is moderately enlarged . Miscellaneous: No inguinal hernias or adenopathy. Bones: No suspicious bony lesions. No vertebral body compression fractures. Degenerative disc and endplate changes at the L5-S1 level. IMPRESSION: 1. There is a small amount of unencapsulated, nonenhancing subcutaneous fluid associated with a small wide necked herniorrhaphy site. This is likely seroma or hematoma. Developing abscess less likely. 2. Mild hepatomegaly and hepatic steatosis. 3. Mild prostatomegaly. 4. Mild bladder wall thickening. Consider cystitis. 5. Concordant with preliminary report. Reviewed by: Heather Macias MD on 08/08/2020 8:54 AM PDT Approved by: Heather Macias MD on 08/08/2020 8:54 AM PDT Station ID: [id number]
[2020-08-08] MEDS: VANCOMYCIN INJ 1.5 GM in SODIUM CHLORIDE 0.9% 500 ML IV SCH ×2 (10:51→22:45)
--- NOTE | 2020-08-08 11:27 | PHARMACY PROGRESS NOTE ---
- Therapy Status Vancomycin regimen day #: 1 (2.5G LOADING DOSE FOLLOWED BY 1.5G Q12 LOADING DOSE) Therapy status: Awaiting steady state Basis for treatment: Empirical Treatment indication: SEPSIS Trough goal: 15-20 Concurrent antibiotics: MEROPENEM - JAMES Risk Risk level for Acute Kidney Injury: High Acute Kidney Injury risk factors: IV contrast within 72 hrs, Goal trough >15, Chronic baseline hypertension, Diabetes, Sepsis - Monitoring and Recommendation Clinical response to treatment: I&O Previous 24 hours 08/06/20 08/07/20 08/08/20 23:59 23:59 23:59 Intake Total 200 4666.49 Balance 200 4666.49 Lab Results 08/08/20 08/07/20 04:51 21:40 BUN 16 18 Creatinine 1.1 1.2 Estimated GFR (MDRD) 68 L 61 L Cultures 08/07/20 23:18 Urine,Clean Catch Urine Culture - Preliminary CULTURE IN PROGRESS. RESULTS TO FOLLOW. Monitoring plan: Daily serum creatinine, Draw trough early (Renal function improved despite 2.5G load. Anticipated trough with Scr @ 1.1 ~19 Drawing t rough early with the understanding that patient will not be at steady state in order to see if we are overshooting target. Will adjust dosing should renal function decrease.), Suggest ongoing fluid replacement Next trough due prior to maintenance dose #: 3 Next trough due (date/time): 08/09/20 @ 1030 Areas for additional monitoring: Therapy de-escalation based on culture results, Acute Kidney Injury, Adverse Drug Event concerns Pharmacy recommendation: Continue current regime
--- NOTE | 2020-08-08 18:06 | PHARMACY PROGRESS NOTE ---
- Best Possible Medication History Admit Date and Time: 08/08/20 0054 Processed by: Pharmacy Medication History completed: Yes Patient Interview: Completed Secondary Source(s): Physician records, Pharmacy records As the person ultimately responsible for medication therapy, providers are able to order a medication from an existing home medication list in [facility] via the "Reconcile Routine" prior to Confirmation of that medication by ground support equipment mechanic. Such practice is discouraged except when the physician, in their clinical judgment, deems that a medical need exists for a medication without regard to previous use.
[2020-08-09] MEDS: SODIUM CHLORIDE FLUSH 0.9% 10 ML SYRINGE IVP SCH ×4 (01:48→22:40)
[2020-08-09] MEDS: LACTATED RINGERS 1,000 ML IV SCH ×2 (04:41→11:57)
[2020-08-09] MEDS: MEROPENEM 1 GM in SODIUM CHLORIDE 0.9% MINIBAG 100 ML IV SCH ×3 (04:45→20:21)
[2020-08-09 05:38] LABS: BASOPHILS # (AUTO) 0.1 10^3/uL (0.0-0.1); BASOPHILS % (AUTO) 0.5 %; EOSINOPHILS # (AUTO) 0.5 10^3/uL (0.0-0.7); EOSINOPHILS % (AUTO) 4.6 %; HGB - HEMOGLOBIN 12.5 g/dL (14.0-18.0); LYMPHOCYTES % (AUTO) 17.7 %; MEAN CORPUSCULAR HEMOGLOBIN 30.2 pg (27.0-31.0); MEAN CORPUSCULAR HGB CONC 33.1 g/dL (32.0-36.0); MEAN CORPUSCULAR VOLUME 91.3 fL (80.0-94.0); MEAN PLATELET VOLUME 9.5 fL (7.4-11.4); MONOCYTES # (AUTO) 0.9 10^3/uL (0.0-1.0); MONOCYTES % (AUTO) 7.9 %; NEUTROPHILS # (AUTO) 7.7 10^3/uL (1.5-6.6); NEUTROPHILS % (AUTO) 68.5 %; PLT - PLATELET COUNT 159 10^3/uL (130-450); RED BLOOD COUNT 4.14 10^6/uL (4.70-6.10); RED CELL DISTRIBUTION WIDTH 13.8 % (12.0-15.0); WHITE BLOOD COUNT 11.2 x10^3/uL (4.8-10.8)
[2020-08-09 05:50] LABS: CALCIUM 8.4 mg/dL (8.5-10.3); CREATININE 0.9 mg/dL (0.6-1.2); MAGNESIUM 1.7 mg/dL (1.7-2.8)
[2020-08-09] MEDS ORDERED: POTASSIUM CHLORIDE 20 MEQ TABLET PO ONE (08:00)
[2020-08-09] MEDS: INSULIN ASPART 300 UNIT/3 ML PEN SUBQ SCH ×4 (08:30→20:20)
[2020-08-09] MEDS: ENOXAPARIN 40 MG/0.4 ML SYRINGE SUBQ SCH (08:46)
[2020-08-09 10:35] LABS: VANCOMYCIN,TROUGH 17.6 ug/mL (10.0-20.0)
[2020-08-09] MEDS: VANCOMYCIN INJ 1.5 GM in SODIUM CHLORIDE 0.9% 500 ML IV SCH ×2 (11:52→22:39)
--- NOTE | 2020-08-09 13:07 | PHARMACY PROGRESS NOTE ---
- Therapy Status Vancomycin regimen day #: 2 Therapy status: Awaiting steady state Basis for treatment: Empirical Treatment indication: SEPSIS Trough goal: 15-20 Concurrent antibiotics: MEROPENEM - JAMES Risk Risk level for Acute Kidney Injury: High Acute Kidney Injury risk factors: IV contrast within 72 hrs, Goal trough >15, Chronic baseline hypertension, Diabetes, Sepsis - Monitoring and Recommendation Clinical response to treatment: I&O Previous 24 hours 08/07/20 08/08/20 08/09/20 23:59 23:59 23:59 Intake Total 200 6826.49 2040 Balance 200 6826.49 2040 Lab Results 08/09/20 08/08/20 08/07/20 05:25 04:51 21:40 BUN 10 16 18 Creatinine 0.9 1.1 1.2 Estimated GFR (MDRD) 86 L 68 L 61 L Vancomycin Monitoring 08/09/20 10:20 Vancomycin Trough 17.6 Cultures 08/07/20 23:18 Urine,Clean Catch Urine Culture - Preliminary CULTURE IN PROGRESS. RESULTS TO FOLLOW. 08/07/20 21:50 Blood - Left Arm Blood Culture - Preliminary NO GROWTH AFTER 1 DAY 08/07/20 21:40 Blood - Right Arm Blood Culture - Preliminary NO GROWTH AFTER 1 DAY TROUGH AT GOAL - NOT YET AT STEADY STATE. RENAL FUNCTION CONTINUES TO NORMALIZE. Monitoring plan: Daily serum creatinine, Suggest ongoing fluid replacement Next trough due prior to maintenance dose #: 5 (WILL BE AT STEADY STATE. IF WITHIN GOAL, NEXT TROUGH IN 5 TO 7 DAYS DEPENDING ON OVERALL CLINICAL PICTURE) Next trough due (date/time): 08/10/20 @ 1030 Areas for additional monitoring: Therapy de-escalation based on culture results, Acute Kidney Injury, Adverse Drug Event concerns Pharmacy recommendation: Continue current regime
--- NOTE | 2020-08-09 15:08 | PROVIDER PROGRESS NOTE ---
Assessment/Plan - Problem List (1) Sepsis Assessment/Plan: Patient reported he feels much better than yesterday. He has no fever from yesterday. WBC is 11 from 18 at admission. Blood culture is negative for bacteremia.Urine culture and sensitivity study are still pending. Continue antibiotics vancomycin and meropenem, We will adjust antibiotics as culture come back. (2) UTI (urinary tract infection) I agree This is believed to be the source of his sepsis. His urinalysis suggestive of infection. Imaging did not reveal any obstruction but was concerning for cystitis. continue to treat pt empirically with meropenem and vancomycin IV. Follow-up urine culture and de-escalate antibiotics as culture revealed. (3) Abdominal wall seroma Conclusion/Plan: This is evident abdominal wall seroma on CT of the abdomen and pelvis status post of hernia repair, pt denies pain, there is no swelling or erythema, or tenderness in the abdominal wall at the surgery site. surgery site is healed. Abdominal exam is unremarkable, and do not suspect that this is infected at this time. We will continue to monitor and consult general surgery if necessary. (4) Type 2 diabetes mellitus Conclusion/Plan: stable, continue carb controlled diet and a sliding scale. (5) History of pulmonary embolism Conclusion/Plan: stable, pt had a history of a provoked pulmonary embolism back in 2012. He is no longer anticoagulation. Continue baby aspirin. (6) Hypertension Conclusion/Plan: stable, We will hold his home antihypertensives in the setting of sepsis. We will resume when clinically indicated. (7) Atrial bigeminy Conclusion/Plan: His EKG is consistent with atrial bigeminy. It is a sinus rhythm with frequent PACs. He is asymptomatic. We will check a TSH in the morning. We will resume his home carvedilol when his blood pressure can tolerate it. - Current Meds Current Meds: Current Medications Generic Name Dose Route Start Last Admin Trade Name Freq PRN Reason Stop Dose Admin Acetaminophen 650 mg 08/08/20 00:54 08/08/20 22:42 Tylenol PO 650 mg Q4HR PRN Administration Pain 1 to 4 Enoxaparin Sodium 40 mg 08/08/20 09:00 08/09/20 08:46 Lovenox SUBQ 40 mg DAILY LILLY Administration Lactated Ringer's 1,000 mls @ 100 mls/hr 08/08/20 01:00 08/09/20 11:57 Lr IV Not Given .Q10H LILLY Meropenem 1 gm/ Sodium 100 mls @ 200 mls/hr 08/08/20 05:00 08/09/20 14:48 Chloride IV Infused Q8H LILLY Infusion Vancomycin HCl 1.5 gm/ Sodium 500 mls @ 250 mls/hr 08/08/20 11:00 08/09/20 13:52 Chloride IV Infused Q12H LILLY Infusion Insulin Aspart 1 - 9 unit 08/08/20 08:00 08/09/20 12:01 Novolog SUBQ Not Given 0800,1200,1700,2100 [facility] Protocol Sodium Chloride 10 ml 08/08/20 00:54 08/08/20 02:44 Normal Saline Flush 0.9% IVP 10 ml PRN PRN Administration NEEDED PER PROVIDER ORDERS Sodium Chloride 10 ml 08/08/20 01:00 08/09/20 08:30 Normal Saline Flush 0.9% IVP Not Given 0100,0900,1700 [facility] - Lab Result Fish Bone Diagrams: 08/09/20 05:25 08/09/20 05:25 - Additional Planning My Orders: My Active Orders 08/09/20 17:00 Saccharomyces Boulardii [Florastor] 250 mg PO BIDWM Subjective - Subjective Patient Reports: Feeling Better Objective Vital Signs: Vital Signs - 24 hr 08/08/20 08/08/20 08/08/20 15:57 20:10 22:46 Temperature 37.5 C 37.3 C 37.3 C Heart Rate [ 84 80 77 Monitoring electrodes] Respiratory 21 18 13 Rate Blood Pressure 128/97 H 106/72 136/87 H [Left Brachial artery] O2 Saturation 92 94 95 08/09/20 08/09/20 08/09/20 05:30 08:00 12:00 Temperature 37.1 C 36.8 C 37.1 C Heart Rate [ 83 62 112 H Monitoring electrodes] Respiratory 18 18 16 Rate Blood Pressure 118/84 H 133/69 H 108/90 H [Left Brachial artery] O2 Saturation 95 95 96 Oxygen O2 Source Room air I&O (Last 24 Hrs): Intake and Output Totals x24h 08/07/20 08/08/20 08/09/20 23:59 23:59 23:59 Intake Total 200 6826.49 2640 Balance 200 6826.49 2640 General: Alert, Oriented x3, No acute distress HEENT: Atraumatic Neck: Supple Lymphatic: no adenopathy Neuro: Alert, Non Focal, Oriented Times 3 Cardiovascular: Normal S1, Normal S2 Respiratory: Chest non-tender, No respiratory distress, Breath sounds nml Abdomen: Normal bowel sounds, Soft Extremities: Normal pulses - Results Results: Laboratory Results WBC 11.2 x10^3/uL (4.8-10.8) H 08/09/20 05:25 RBC 4.14 10^6/uL (4.70-6.10) L 08/09/20 05:25 Hgb 12.5 g/dL (14.0-18.0) L 08/09/20 05:25 Hct 37.8 % (42.0-52.0) L 08/09/20 05:25 MCV 91.3 fL (80.0-94.0) 08/09/20 05:25 MCH 30.2 pg (27.0-31.0) 08/09/20 05:25 MCHC 33.1 g/dL (32.0-36.0) 08/09/20 05:25 RDW 13.8 % (12.0-15.0) 08/09/20 05:25 Plt Count 159 10^3/uL (130-450) 08/09/20 05:25 MPV 9.5 fL (7.4-11.4) 08/09/20 05:25 Neut # (Auto) 7.7 10^3/uL (1.5-6.6) H 08/09/20 05:25 Lymph # (Auto) 2.0 10^3/uL (1.5-3.5) 08/09/20 05:25 [place] # (Auto) 0.9 10^3/uL (0.0-1.0) 08/09/20 05:25 Eos # (Auto) 0.5 10^3/uL (0.0-0.7) 08/09/20 05:25 Baso # (Auto) 0.1 10^3/uL (0.0-0.1) 08/09/20 05:25 Absolute Nucleated RBC 0.00 x10^3/uL 08/09/20 05:25 Nucleated RBC % 0.0 /100WBC 08/09/20 05:25 Sodium 139 mmol/L (135-145) 08/09/20 05:25 Potassium 3.3 mmol/L (3.5-5.0) L 08/09/20 05:25 Chloride 108 mmol/L (101-111) 08/09/20 05:25 Carbon Dioxide 22 mmol/L (21-32) 08/09/20 05:25 Anion Gap 9.0 (6-13) 08/09/20 05:25 BUN 10 mg/dL (6-20) 08/09/20 05:25 Creatinine 0.9 mg/dL (0.6-1.2) 08/09/20 05:25 Estimated GFR (MDRD) 86 (>89) L 08/09/20 05:25 Glucose 115 mg/dL (70-100) H 08/09/20 05:25 POC Whole Bld Glucose 122 mg/dL (70 - 100) H 08/09/20 12:00 Lactic Acid 1.8 mmol/L (0.5-2.2) 08/08/20 01:09 Calcium 8.4 mg/dL (8.5-10.3) L 08/09/20 05:25 Phosphorus 3.0 mg/dL (2.5-4.6) 08/09/20 05:25 Magnesium 1.7 mg/dL (1.7-2.8) 08/09/20 05:25 Total Bilirubin 1.8 mg/dL (0.2-1.0) H 08/07/20 21:40 AST 18 IU/L (10-42) 08/07/20 21:40 ALT 24 IU/L (10-60) 08/07/20 21:40 Alkaline Phosphatase 56 IU/L (42-121) 08/07/20 21:40 Total Protein 7.2 g/dL (6.7-8.2) 08/07/20 21:40 Albumin 3.7 g/dL (3.2-5.5) 08/07/20 21:40 Globulin 3.5 g/dL (2.1-4.2) 08/07/20 21:40 Albumin/Globulin Ratio 1.1 (1.0-2.2) 08/07/20 21:40 TSH 1.53 uIU/mL (0.34-5.60) 08/08/20 04:51 Urine Color YELLOW 08/07/20 23:18 Urine Clarity CLEAR (CLEAR) 08/07/20 23:18 Urine pH 7.0 PH (5.0-7.5) 08/07/20 23:18 Ur Specific [place] 1.020 (1.002-1.030) 08/07/20 23:18 Urine Protein TRACE mg/dL (NEGATIVE) 08/07/20 23:18 Urine Glucose (UA) NEGATIVE mg/dL (NEGATIVE) 08/07/20 23:18 Urine Ketones TRACE mg/dL (NEGATIVE) 08/07/20 23:18 Urine Occult Blood NEGATIVE (NEGATIVE) 08/07/20 23:18 Urine Nitrite NEGATIVE (NEGATIVE) 08/07/20 23:18 Urine Bilirubin NEGATIVE (NEGATIVE) 08/07/20 23:18 Urine Urobilinogen 2 E.U./dL (NORMAL) H 08/07/20 23:18 Ur Leukocyte Esterase SMALL (NEGATIVE) H 08/07/20 23:18 Urine RBC 0-5 /HPF (0-5) 08/07/20 23:18 Urine WBC 11-25 /HPF (0-3) H 08/07/20 23:18 Ur Squamous Epith Cells RARE Squamous (<= Few) 08/07/20 23:18 Urine Bacteria Rare /HPF (None Seen) 08/07/20 23:18 Urine Mucus Moderate Strands 08/07/20 23:18 Urine Culture Comments INDICATED 08/07/20 23:18 Nasal Screen MRSA (PCR) NEGATIVE (NEGATIVE) 08/08/20 02:51 Last Dose Date 08/09/20 08/09/20 10:20 Last Dose Time 01:10 08/09/20 10:20 Vancomycin Trough 17.6 ug/mL (10.0-20.0) 08/09/20 10:20 Coronavirus (PCR) NEGATIVE 08/07/20 23:25 Influenza A (Rapid) Negative (Negative) 08/08/20 01:00 Influenza B (Rapid) Negative (Negative) 08/08/20 01:00 - Procedures Procedures: Procedures SUPPLEMENT ABDOMINAL WALL WITH SYNTH SUB, OPEN APPROACH (07/17/20) Sepsis Event Note (H) - Evaluation Current Stage of Sepsis: Sepsis Possible source of Sepsis: positive: Unknown - Sepsis Criteria Sepsis Criteria: Recorded Temperature greater than 38.3C or Less than 36C, Recorded Heart Rate greater than 90 bpm, WBC count greater than 12,000 or less than 4000 ABX Reporting Has patient been on IV antibiotics over the past 48 hours?: Yes
[2020-08-09] MEDS: SACCHAROMYCES BOULARDII 250 MG CAPSULE PO SCH (18:03)
[2020-08-09] MEDS: ACETAMINOPHEN 325 MG TABLET PO PRN (20:19)
[2020-08-09] MEDS: carvediloL 3.125 MG TABLET PO SCH (20:20)
[2020-08-09] MEDS: SODIUM CHLORIDE FLUSH 0.9% 10 ML SYRINGE IVP PRN (20:21)
[2020-08-10] MEDS: MEROPENEM 1 GM in SODIUM CHLORIDE 0.9% MINIBAG 100 ML IV SCH ×3 (04:32→20:45)
[2020-08-10 05:26] LABS: BASOPHILS # (AUTO) 0.1 10^3/uL (0.0-0.1); BASOPHILS % (AUTO) 0.7 %; EOSINOPHILS # (AUTO) 0.8 10^3/uL (0.0-0.7); EOSINOPHILS % (AUTO) 9.5 %; HGB - HEMOGLOBIN 12.4 g/dL (14.0-18.0); LYMPHOCYTES # (AUTO) 1.4 10^3/uL (1.5-3.5); LYMPHOCYTES % (AUTO) 16.4 %; MEAN CORPUSCULAR HEMOGLOBIN 30.7 pg (27.0-31.0); MEAN CORPUSCULAR HGB CONC 34.2 g/dL (32.0-36.0); MEAN CORPUSCULAR VOLUME 89.9 fL (80.0-94.0); MEAN PLATELET VOLUME 9.6 fL (7.4-11.4); MONOCYTES # (AUTO) 0.8 10^3/uL (0.0-1.0); MONOCYTES % (AUTO) 9.4 %; NEUTROPHILS # (AUTO) 5.4 10^3/uL (1.5-6.6); NEUTROPHILS % (AUTO) 62.8 %; PLT - PLATELET COUNT 188 10^3/uL (130-450); RED BLOOD COUNT 4.04 10^6/uL (4.70-6.10); RED CELL DISTRIBUTION WIDTH 13.7 % (12.0-15.0); WHITE BLOOD COUNT 8.5 x10^3/uL (4.8-10.8)
[2020-08-10 05:41] LABS: CALCIUM 8.4 mg/dL (8.5-10.3); CREATININE 0.9 mg/dL (0.6-1.2); MAGNESIUM 1.8 mg/dL (1.7-2.8); PHOSPHORUS 3.2 mg/dL (2.5-4.6)
[2020-08-10] MEDS: INSULIN ASPART 300 UNIT/3 ML PEN SUBQ SCH ×4 (07:58→20:46)
[2020-08-10] MEDS: carvediloL 3.125 MG TABLET PO SCH ×2 (07:59→20:43)
[2020-08-10] MEDS: ASPIRIN CHEW 81 MG TABLET PO SCH (07:59)
[2020-08-10] MEDS: SACCHAROMYCES BOULARDII 250 MG CAPSULE PO SCH ×2 (07:59→17:57)
[2020-08-10] MEDS: ENOXAPARIN 40 MG/0.4 ML SYRINGE SUBQ SCH (08:49)
[2020-08-10] MEDS ORDERED: ASPIRIN CHEW 81 MG TABLET PO SCH (09:00)
[2020-08-10 10:47] LABS: VANCOMYCIN,TROUGH 18.9 ug/mL (10.0-20.0)
[2020-08-10] MEDS: VANCOMYCIN INJ 1.5 GM in SODIUM CHLORIDE 0.9% 500 ML IV SCH ×2 (10:58→23:59)
[2020-08-10] MEDS: SODIUM CHLORIDE FLUSH 0.9% 10 ML SYRINGE IVP SCH ×2 (10:58→17:58)
--- NOTE | 2020-08-10 16:19 | PROVIDER PROGRESS NOTE ---
Assessment/Plan - Problem List (1) Sepsis Assessment/Plan: 08/10 Patient Still has a spotted fever on last night. although Patient WBC is normal now, UA reveals likely contamination, CXR reveals no acute process. it is unclear the resource to cause pt's fever. continue with meropenem and vancomycin IV Patient reported he feels much better than yesterday. He has no fever from yesterday. WBC is 11 from 18 at admission. Blood culture is negative for bacteremia.Urine culture and sensitivity study are still pending. Continue antibiotics vancomycin and meropenem, We will adjust antibiotics as culture come back. (2) UTI (urinary tract infection) 08/10 UA reveals likely contamination. I agree This is believed to be the source of his sepsis. His urinalysis sugg estive of infection. Imaging did not reveal any obstruction but was concerning for cystitis. continue to treat pt empirically with meropenem and vancomycin IV. Follow-up urine culture and de-escalate antibiotics as culture revealed. (3) Abdominal wall seroma Conclusion/Plan: This is evident abdominal wall seroma on CT of the abdomen and pelvis status pos t of hernia repair, pt denies pain, there is no swelling or erythema, or tenderness in the abdominal wall at the surgery site. surgery site is healed. Abdominal exam is unremarkable, and do not suspect that this is infected at this time. We will continue to monitor and consult general surgery if necessary. (4) Type 2 diabetes mellitus Conclusion/Plan: stable, continue carb controlled diet and a sliding scale. (5) History of pulmonary embolism Conclusion/Plan: stable, pt had a history of a provoked pulmonary embolism back in 2012. He is no longer anticoagulation. Continue baby aspirin. (6) Hypertension Conclusion/Plan: stable, We will hold his home antihypertensives in the setting of sepsis. We will resume when clinically indicated. (7) Atrial bigeminy Conclusion/Plan: 08/10 continue tele monitor, pt show once HR 45 although pt did not report dizziness, SOB, or bradycardia symptoms, will close monitor and order EKG as n eeded. Electrolytes is in the normal range His EKG is consistent with atrial bigeminy. It is a sinus rhythm with frequent PACs. He is asymptomatic. We will check a TSH in the morning. We will resume his home carvedilol when his blood pressure can tolerate it. - Current Meds Current Meds: Current Medications Generic Name Dose Route Start Last Admin Trade Name Freq PRN Reason Stop Dose Admin Acetaminophen 650 mg 08/08/20 00:54 08/09/20 20:19 Tylenol PO 650 mg Q4HR PRN Administration Pain 1 to 4 Aspirin 81 mg 08/10/20 09:00 08/10/20 07:59 [facility] Juma Aspirin PO 81 mg DAILY LILLY Administration Carvedilol 6.25 mg 08/09/20 21:00 08/10/20 07:59 Coreg PO 6.25 mg BID LILLY Administration Enoxaparin Sodium 40 mg 08/08/20 09:00 08/10/20 08:49 Lovenox SUBQ 40 mg DAILY LILLY Administration Meropenem 1 gm/ Sodium 100 mls @ 200 mls/hr 08/08/20 05:00 08/10/20 14:15 Chloride IV Infused Q8H L[facility]Y Infusion Vancomycin HCl 1.5 gm/ Sodium 500 mls @ 250 mls/hr 08/08/20 11:00 08/10/20 13:30 Chloride IV Infused Q12H LILLY Infusion Insulin Aspart 1 - 9 unit 08/08/20 08:00 08/10/20 12:00 Novolog SUBQ Not Given 0800,1200,1700,2100 [facility] Protocol Saccharomyces Boulardii 250 mg 08/09/20 17:00 08/10/20 07:59 Florastor PO 250 mg BIDWM LILLY Administration Sodium Chloride 10 ml 08/08/20 00:54 08/09/20 20:21 Normal Saline Flush 0.9% IVP 10 ml PRN PRN Administration NEEDED PER PROVIDER ORDERS Sodium Chloride 10 ml 08/08/20 01:00 08/10/20 10:58 Normal Saline Flush 0.9% IVP 10 ml 0100,0900,1700 LILLY Administration - Lab Result Fish Bone Diagrams: 08/10/20 04:30 08/10/20 04:30 - Additional Planning My Orders: My Active Orders 08/09/20 17:00 Saccharomyces Boulardii [Florastor] 250 mg PO BIDWM 08/09/20 21:00 carvediloL [Coreg] 6.25 mg PO BID 08/10/20 09:00 Aspirin Chewable [[facility]uma Aspirin] 81 mg PO DAILY 08/10/20 16:18 Telemetry- [RC] Q4HR Subjective - Subjective Patient Reports: Feeling Better Objective Vital Signs: Vital Signs - 24 hr 08/09/20 08/09/20 08/10/20 20:22 21:30 01:00 Temperature 37.8 C H 37.3 C 36.6 C Heart Rate [ 70 50 L Monitoring electrodes] Respiratory 18 18 Rate Blood Pressure 134/84 H 142/79 H [Left Brachial artery] Blood Pressure [Right Brachial artery] O2 Saturation 96 98 08/10/20 08/10/20 08/10/20 04:38 08:00 11:46 Temperature 36.8 C 36.9 C 36.9 C Heart Rate [ 63 68 45 L Monitoring electrodes] Respiratory 21 16 16 Rate Blood Pressure 134/78 H 124/96 H [Left Brachial artery] Blood Pressure 126/83 H [Right Brachial artery] O2 Saturation 96 95 95 08/10/20 16:01 Temperature Heart Rate [ Monitoring electrodes] Respiratory Rate Blood Pressure [Left Brachial artery] Blood Pressure 138/74 H [Right Brachial artery] O2 Saturation Oxygen O2 Source Room air I&O (Last 24 Hrs): Intake and Output Totals x24h 08/08/20 08/09/20 08/10/20 23:59 23:59 23:59 Intake Total 6826.49 4220 1910 Balance 6826.49 4220 1910 General: Alert, Oriented x3, No acute distress HEENT: Atraumatic Neck: Supple Lymphatic: no adenopathy Neuro: Alert, Non Focal, Oriented Times 3 Cardiovascular: Regular rate, Normal S1, Normal S2 Respiratory: Chest non-tender, No respiratory distress Abdomen: Normal bowel sounds, Soft Extremities: Normal pulses - Results Results: Laboratory Results WBC 8.5 x10^3/uL (4.8-10.8) 08/10/20 04:30 RBC 4.04 10^6/uL (4.70-6.10) L 08/10/20 04:30 Hgb 12.4 g/dL (14.0-18.0) L 08/10/20 04:30 Hct 36.3 % (42.0-52.0) L 08/10/20 04:30 MCV 89.9 fL (80.0-94.0) 08/10/20 04:30 MCH 30.7 pg (27.0-31.0) 08/10/20 04:30 MCHC 34.2 g/dL (32.0-36.0) 08/10/20 04:30 RDW 13.7 % (12.0-15.0) 08/10/20 04:30 Plt Count 188 10^3/uL (130-450) 08/10/20 04:30 MPV 9.6 fL (7.4-11.4) 08/10/20 04:30 Neut # (Auto) 5.4 10^3/uL (1.5-6.6) 08/10/20 04:30 Lymph # (Auto) 1.4 10^3/uL (1.5-3.5) L 08/10/20 04:30 [place] # (Auto) 0.8 10^3/uL (0.0-1.0) 08/10/20 04:30 Eos # (Auto) 0.8 10^3/uL (0.0-0.7) H 08/10/20 04:30 Baso # (Auto) 0.1 10^3/uL (0.0-0.1) 08/10/20 04:30 Absolute Nucleated RBC 0.00 x10^3/uL 08/10/20 04:30 Nucleated RBC % 0.0 /100WBC 08/10/20 04:30 Sodium 139 mmol/L (135-145) 08/10/20 04:30 Potassium 3.6 mmol/L (3.5-5.0) 08/10/20 04:30 Chloride 106 mmol/L (101-111) 08/10/20 04:30 Carbon Dioxide 25 mmol/L (21-32) 08/10/20 04:30 Anion Gap 8.0 (6-13) 08/10/20 04:30 BUN 12 mg/dL (6-20) 08/10/20 04:30 Creatinine 0.9 mg/dL (0.6-1.2) 08/10/20 04:30 Estimated GFR (MDRD) 86 (>89) L 08/10/20 04:30 Glucose 120 mg/dL (70-100) H 08/10/20 04:30 POC Whole Bld Glucose 105 mg/dL (70 - 100) H 08/10/20 11:30 Lactic Acid 1.8 mmol/L (0.5-2.2) 08/08/20 01:09 Calcium 8.4 mg/dL (8.5-10.3) L 08/10/20 04:30 Phosphorus 3.2 mg/dL (2.5-4.6) 08/10/20 04:30 Magnesium 1.8 mg/dL (1.7-2.8) 08/10/20 04:30 Total Bilirubin 1.8 mg/dL (0.2-1.0) H 08/07/20 21:40 AST 18 IU/L (10-42) 08/07/20 21:40 ALT 24 IU/L (10-60) 08/07/20 21:40 Alkaline Phosphatase 56 IU/L (42-121) 08/07/20 21:40 Total Protein 7.2 g/dL (6.7-8.2) 08/07/20 21:40 Albumin 3.7 g/dL (3.2-5.5) 08/07/20 21:40 Globulin 3.5 g/dL (2.1-4.2) 08/07/20 21:40 Albumin/Globulin Ratio 1.1 (1.0-2.2) 08/07/20 21:40 TSH 1.53 uIU/mL (0.34-5.60) 08/08/20 04:51 Urine Color YELLOW 08/07/20 23:18 Urine Clarity CLEAR (CLEAR) 08/07/20 23:18 Urine pH 7.0 PH (5.0-7.5) 08/07/20 23:[address] 1.020 (1.002-1.030) 08/07/20 23:18 Urine Protein TRACE mg/dL (NEGATIVE) 08/07/20 23:18 Urine Glucose (UA) NEGATIVE mg/dL (NEGATIVE) 08/07/20 23:18 Urine Ketones TRACE mg/dL (NEGATIVE) 08/07/20 23:18 Urine Occult Blood NEGATIVE (NEGATIVE) 08/07/20 23:18 Urine Nitrite NEGATIVE (NEGATIVE) 08/07/20 23:18 Urine Bilirubin NEGATIVE (NEGATIVE) 08/07/20 23:18 Urine Urobilinogen 2 E.U./dL (NORMAL) H 08/07/20 23:18 Ur Leukocyte Esterase SMALL (NEGATIVE) H 08/07/20 23:18 Urine RBC 0-5 /HPF (0-5) 08/07/20 23:18 Urine WBC 11-25 /HPF (0-3) H 08/07/20 23:18 Ur Squamous Epith Cells RARE Squamous (<= Few) 08/07/20 23:18 Urine Bacteria Rare /HPF (None Seen) 08/07/20 23:18 Urine Mucus Moderate Strands 08/07/20 23:18 Urine Culture Comments INDICATED 08/07/20 23:18 Nasal Screen MRSA (PCR) NEGATIVE (NEGATIVE) 08/08/20 02:51 Last Dose Date 08/10/2020 08/10/20 10:25 Last Dose Time 01:25 08/10/20 10:25 Vancomycin Trough 18.9 ug/mL (10.0-20.0) 08/10/20 10:25 Coronavirus (PCR) NEGATIVE 08/07/20 23:25 Influenza A (Rapid) Negative (Negative) 08/08/20 01:00 Influenza B (Rapid) Negative (Negative) 08/08/20 01:00 - Procedures Procedures: Procedures SUPPLEMENT ABDOMINAL WALL WITH SYNTH SUB, OPEN APPROACH (07/17/20) Sepsis Event Note (H) - Evaluation Current Stage of Sepsis: Sepsis Possible source of Sepsis: positive: Unknown - Sepsis Criteria Sepsis Criteria: Recorded Temperature greater than 38.3C or Less than 36C, Recorded Heart Rate greater than 90 bpm, WBC count greater than 12,000 or less than 4000 ABX Reporting Has patient been on IV antibiotics over the past 48 hours?: Yes Current Medications - Current Medications Current Medications: Active Medications Acetaminophen (Tylenol) 650 mg PO Q4HR PRN PRN Reason: Pain 1 to 4 Last Admin: 08/09/20 20:19 Dose: 650 mg Documented by: Aspirin ([facility] Aspirin) 81 mg PO DAILY [facility] Last Admin: 08/10/20 07:59 Dose: 81 mg Documented by: Carvedilol (Coreg) 6.25 mg PO BID [facility] Last Admin: 08/10/20 07:59 Dose: 6.25 mg Documented by: Enoxaparin Sodium (Lovenox) 40 mg SUBQ DAILY [facility] Last Admin: 08/10/20 08:49 Dose: 40 mg Documented by: Meropenem 1 gm/ Sodium (Chloride) 100 mls @ 200 mls/hr IV Q8H [facility] Last Infusion: 08/10/20 14:15 Dose: Infused Documented by: Vancomycin HCl 1.5 gm/ Sodium (Chloride) 500 mls @ 250 mls/hr IV Q12H [facility] Last Infusion: 08/10/20 13:30 Dose: Infused Documented by: Insulin Aspart (Novolog) 1 - 9 unit SUBQ 0800,1200,1700,2100 [facility]; Protocol Last Admin: 08/10/20 12:00 Dose: Not Given Documented by: Ondansetron HCl (Zofran Inj) 4 mg IVP Q6HR PRN PRN Reason: Nausea / Vomiting Saccharomyces Boulardii (Florastor) 250 mg PO BIDWM [facility] Last Admin: 08/10/20 07:59 Dose: 250 mg Documented by: Sodium Chloride (Normal Saline Flush 0.9%) 10 ml IVP PRN PRN PRN Reason: NEEDED PER PROVIDER ORDERS Last Admin: 08/09/20 20:21 Dose: 10 ml Documented by: Sodium Chloride (Normal Saline Flush 0.9%) 10 ml IVP 0100,0900,1700 [facility] Last Admin: 08/10/20 10:58 Dose: 10 ml Documented by: Acetaminophen [Tylenol] 650 mg PO Q6H PRN 04/10/18 Aspirin 81 mg PO DAILY 04/10/18 Celecoxib 100 mg PO BID 04/10/18 Cetirizine [ZyrTEC] 10 mg PO DAILY 04/10/18 Ibuprofen [Motrin Ib] 200 mg PO TID PRN 04/10/18 Metformin HCl 1,000 mg PO BIDWM 04/10/18 Pantoprazole Sodium 40 mg PO DAILY 04/10/18 Simvastatin 40 mg PO QPM 04/10/18 Carvedilol 6.25 mg PO BID 07/12/20 Hydrochlorothiazide 12.5 mg PO DAILY 07/12/20 Losartan Potassium 25 mg PO QPM 07/12/20 Cyanocobalamin (Vitamin B-12) [Cyanocobalamin Injection] 1 ml IM Q28D 07/17/20 Amlodipine Besylate [Norvasc] 10 mg PO DAILY 08/08/20 Fluticasone Propion/Salmeterol [Wixela 250-50 Inhub] 2 puffs IH DAILY 08/08/20
--- NOTE | 2020-08-10 18:47 | PHARMACY PROGRESS NOTE ---
- Therapy Status Vancomycin regimen day #: 4 Therapy status: Trough therapeutic Basis for treatment: Empirical Treatment indication: Sepsis Trough goal: 15-20 - JAMES Risk Risk level for Acute Kidney Injury: High Acute Kidney Injury risk factors: IV contrast within 72 hrs, Goal trough >15, Chronic baseline hypertension, Diabetes, Sepsis - Monitoring and Recommendation Clinical response to treatment: I&O Previous 24 hours 08/08/20 08/09/20 08/10/20 23:59 23:59 23:59 Intake Total 6826.49 4220 2150 Balance 6826.49 4220 2150 Lab Results 08/10/20 08/09/20 08/08/20 04:30 05:25 04:51 BUN 12 10 16 Creatinine 0.9 0.9 1.1 Estimated GFR (MDRD) 86 L 86 L 68 L 08/07/20 21:40 BUN 18 Creatinine 1.2 Estimated GFR (MDRD) 61 L Vancomycin Monitoring 08/10/20 08/09/20 10:25 10:20 Vancomycin Trough 18.9 17.6 Cultures 08/07/20 23:18 Urine,Clean Catch Urine Culture - Final 10-50,000 COLONIES/ML Polymicrobial growth including potential pathogens. This is suggestive of skin or other contamination. 08/07/20 21:50 Blood - Left Arm Blood Culture - Preliminary NO GROWTH AFTER 2 DAYS 08/07/20 21:40 Blood - Right Arm Blood Culture - Preliminary NO GROWTH AFTER 2 DAYS Monitoring plan: Daily serum creatinine, Suggest ongoing fluid replacement Areas for additional monitoring: Therapy de-escalation based on culture results, Acute Kidney Injury, Adverse Drug Event concerns Pharmacy recommendation: Continue current regime
[2020-08-11] MEDS: MEROPENEM 1 GM in SODIUM CHLORIDE 0.9% MINIBAG 100 ML IV SCH (05:20)
[2020-08-11] MEDS: SODIUM CHLORIDE FLUSH 0.9% 10 ML SYRINGE IVP SCH ×4 (05:39→21:06)
[2020-08-11 06:01] LABS: BASOPHILS # (AUTO) 0.1 10^3/uL (0.0-0.1); BASOPHILS % (AUTO) 0.6 %; EOSINOPHILS # (AUTO) 0.9 10^3/uL (0.0-0.7); EOSINOPHILS % (AUTO) 10.8 %; HGB - HEMOGLOBIN 12.9 g/dL (14.0-18.0); LYMPHOCYTES # (AUTO) 1.7 10^3/uL (1.5-3.5); LYMPHOCYTES % (AUTO) 19.8 %; MEAN CORPUSCULAR HEMOGLOBIN 30.4 pg (27.0-31.0); MEAN CORPUSCULAR HGB CONC 34.1 g/dL (32.0-36.0); MEAN CORPUSCULAR VOLUME 89.2 fL (80.0-94.0); MEAN PLATELET VOLUME 9.2 fL (7.4-11.4); NEUTROPHILS # (AUTO) 4.7 10^3/uL (1.5-6.6); NEUTROPHILS % (AUTO) 55.6 %; PLT - PLATELET COUNT 218 10^3/uL (130-450); RED BLOOD COUNT 4.24 10^6/uL (4.70-6.10); RED CELL DISTRIBUTION WIDTH 13.7 % (12.0-15.0); WHITE BLOOD COUNT 8.5 x10^3/uL (4.8-10.8)
[2020-08-11 06:17] LABS: CALCIUM 8.6 mg/dL (8.5-10.3); MAGNESIUM 1.9 mg/dL (1.7-2.8); PHOSPHORUS 3.3 mg/dL (2.5-4.6)
[2020-08-11] MEDS ORDERED: METOPROLOL 5 MG/5 ML VIAL IVP STA (06:59)
[2020-08-11] MEDS ORDERED: carvediloL 12.5 MG TABLET PO SCH (09:00)
[2020-08-11] MEDS: INSULIN ASPART 300 UNIT/3 ML PEN SUBQ SCH ×4 (09:18→21:05)
[2020-08-11] MEDS: SACCHAROMYCES BOULARDII 250 MG CAPSULE PO SCH ×2 (09:19→17:09)
[2020-08-11] MEDS: ENOXAPARIN 40 MG/0.4 ML SYRINGE SUBQ SCH (09:20)
[2020-08-11] MEDS: ASPIRIN CHEW 81 MG TABLET PO SCH (09:20)
[2020-08-11] MEDS: VANCOMYCIN INJ 1.5 GM in SODIUM CHLORIDE 0.9% 500 ML IV SCH (11:37)
[2020-08-11] MEDS: ACETAMINOPHEN 325 MG TABLET PO PRN (13:33)
[2020-08-11] MEDS: AMOX/CLAV 875 MG/125 MG TABLET PO SCH ×2 (13:33→21:01)
--- NOTE | 2020-08-11 17:15 | PROVIDER PROGRESS NOTE ---
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 After the patient was given intravenous metoprolol, patient Corag increases to 12.5 twice daily, His pulse is treated down to 50 and 52. Patient had one time of pause at 46. Patient's atrial fibrillation converted to sinus rhythm now. We will monitor pt overnight with telemetry with this new increased dosage plus one time of Metoprolol. Patient agreed. Current Medications - Current Medications Current Medications: Active Medications Acetaminophen (Tylenol) 650 mg PO Q4HR PRN PRN Reason: Pain 1 to 4 Last Admin: 08/11/20 13:33 Dose: 650 mg Documented by: Amoxicillin/Clavulanate Potassium (Augmentin 875/125) 1 tab PO BID [facility] Last Admin: 08/11/20 13:33 Dose: 1 tab Documented by: Aspirin ([facility] Juma Aspirin) 81 mg PO DAILY [facility] Last Admin: 08/11/20 09:20 Dose: 81 mg Documented by: Carvedilol (Coreg) 12.5 mg PO BID [facility] Last Admin: 08/11/20 09:20 Dose: 12.5 mg Documented by: Enoxaparin Sodium (Lovenox) 40 mg SUBQ DAILY [facility] Last Admin: 08/11/20 09:20 Dose: 40 mg Documented by: Insulin Aspart (Novolog) 1 - 9 unit SUBQ 0800,1200,1700,2100 [facility]; Protocol Last Admin: 08/11/20 17:01 Dose: Not Given Documented by: Ondansetron HCl (Zofran Inj) 4 mg IVP Q6HR PRN PRN Reason: Nausea / Vomiting Saccharomyces Boulardii (Florastor) 250 mg PO BIDWM [facility] Last Admin: 08/11/20 17:09 Dose: 250 mg Documented by: Sodium Chloride (Normal Saline Flush 0.9%) 10 ml IVP PRN PRN PRN Reason: NEEDED PER PROVIDER ORDERS Last Admin: 08/09/20 20:21 Dose: 10 ml Documented by: Sodium Chloride (Normal Saline Flush 0.9%) 10 ml IVP 0100,0900,1700 [facility] Last Admin: 08/11/20 17:10 Dose: 10 ml Documented by: Acetaminophen [Tylenol] 650 mg PO Q6H PRN 04/10/18 Aspirin 81 mg PO DAILY 04/10/18 Celecoxib 100 mg PO BID 04/10/18 Cetirizine [ZyrTEC] 10 mg PO DAILY 04/10/18 Ibuprofen [Motrin Ib] 200 mg PO TID PRN 04/10/18 Metformin HCl 1,000 mg PO BIDWM 04/10/18 Pantoprazole Sodium 40 mg PO DAILY 04/10/18 Simvastatin 40 mg PO QPM 04/10/18 Carvedilol 6.25 mg PO BID 07/12/20 Hydrochlorothiazide 12.5 mg PO DAILY 07/12/20 Losartan Potassium 25 mg PO QPM 07/12/20 Cyanocobalamin (Vitamin B-12) [Cyanocobalamin Injection] 1 ml IM Q28D 07/17/20 Amlodipine Besylate [Norvasc] 10 mg PO DAILY 08/08/20 Fluticasone Propion/Salmeterol [Wixela 250-50 Inhub] 2 puffs IH DAILY 08/08/20 Objective - Vital Signs/Intake & Output Vital Signs: Vital Signs x48h Temp Pulse Resp BP Pulse Ox 08/11/20 13:00 36.8 C 58 L 20 120/89 H 95 Intake & Output: Intake & Output 08/08/20 08/09/20 08/10/20 08/11/20 23:59 23:59 23:59 23:59 Intake Total 6826.49 4220 2250 1200 Balance 6826.49 4220 2250 1200 - Objective General Appearance: positive: No acute distress, Alert. negative: Lethargic Eyes Bilateral: positive: Normal inspection, PERRL, No lid inflammation ENT: positive: ENT inspection nml, No signs of dehydration. negative: Purulent nasal drainage Neck: positive: Nml inspection, Thyroid nml, Trachea midline. negative: Thyromegaly, Stiff neck, Tracheal deviation Respiratory: positive: Chest non-tender, No respiratory distress, Breath sounds nml. negative: Wheezes, Rales, Rhonchi Cardiovascular: positive: Regular rate & rhythm, No murmur, Bradycardia. negative: Tachycardia, Systolic murmur, Diastolic murmur Peripheral Pulses: 2+ Radial (R), 2+ Radial (L) Abdomen: positive: Non-tender, Nml bowel sounds, No distention. negative: Tenderness, Guarding, Rebound Back: positive: Nml inspection Skin: positive: Color nml, No rash, Warm, Dry. negative: Cyanosis, Diaphoresis, Pallor Extremities: positive: Non-tender, Full ROM, Nml appearance. negative: Calf tenderness, Gale's sign/cords Neurologic/Psychiatric: positive: Oriented x3, Motor nml, Sensation nml, Mood/affect nml. negative: Weakness, Sensory loss, Facial droop, Slurred/abnml speech, Depressed mood/affect - Lab Results Fish Bones: 08/11/20 04:45 08/11/20 04:45 Other Labs: Lab Results x24hrs 08/11/20 08/11/20 08/11/20 Range/Units 16:43 11:54 08:14 WBC (4.8-10.8) x10^3/uL RBC (4.70-6.10) 10^6/uL Hgb (14.0-18.0) g/dL Hct (42.0-52.0) % MCV (80.0-94.0) fL MCH (27.0-31.0) pg MCHC (32.0-36.0) g/dL RDW (12.0-15.0) % Plt Count (130-450) 10^3/uL MPV (7.4-11.4) fL Neut # (Auto) (1.5-6.6) 10^3/uL Lymph # (Auto) (1.5-3.5) 10^3/uL [place] # (Auto) (0.0-1.0) 10^3/uL Eos # (Auto) (0.0-0.7) 10^3/uL Baso # (Auto) (0.0-0.1) 10^3/uL Absolute Nucleated RBC x10^3/uL Nucleated RBC % /100WBC Sodium (135-145) mmol/L Potassium (3.5-5.0) mmol/L Chloride (101-111) mmol/L Carbon Dioxide (21-32) mmol/L Anion Gap (6-13) BUN (6-20) mg/dL Creatinine (0.6-1.2) mg/dL Estimated GFR (MDRD) (>89) Glucose (70-100) mg/dL POC Whole Bld Glucose 127 H 111 H 109 H (70 - 100) mg/dL Calcium (8.5-10.3) mg/dL Phosphorus (2.5-4.6) mg/dL Magnesium (1.7-2.8) mg/dL Troponin I High Sens (2.3-19.7) ng/L 08/11/20 08/11/20 08/11/20 Range/Units 07:45 04:45 04:45 WBC 8.5 (4.8-10.8) x10^3/uL RBC 4.24 L (4.70-6.10) 10^6/uL Hgb 12.9 L (14.0-18.0) g/dL Hct 37.8 L (42.0-52.0) % MCV 89.2 (80.0-94.0) fL MCH 30.4 (27.0-31.0) pg MCHC 34.1 (32.0-36.0) g/dL RDW 13.7 (12.0-15.0) % Plt Count 218 (130-450) 10^3/uL MPV 9.2 (7.4-11.4) fL Neut # (Auto) 4.7 (1.5-6.6) 10^3/uL Lymph # (Auto) 1.7 (1.5-3.5) 10^3/uL [place] # (Auto) 1.0 (0.0-1.0) 10^3/uL Eos # (Auto) 0.9 H (0.0-0.7) 10^3/uL Baso # (Auto) 0.1 (0.0-0.1) 10^3/uL Absolute Nucleated RBC 0.00 x10^3/uL Nucleated RBC % 0.0 /100WBC Sodium 138 (135-145) mmol/L Potassium 3.6 (3.5-5.0) mmol/L Chloride 104 (101-111) mmol/L Carbon Dioxide 24 (21-32) mmol/L Anion Gap 10.0 (6-13) BUN 11 (6-20) mg/dL Creatinine 1.0 (0.6-1.2) mg/dL Estimated GFR (MDRD) 76 L (>89) Glucose 107 H (70-100) mg/dL POC Whole Bld Glucose (70 - 100) mg/dL Calcium 8.6 (8.5-10.3) mg/dL Phosphorus 3.3 (2.5-4.6) mg/dL Magnesium 1.9 (1.7-2.8) mg/dL Troponin I High Sens 6.0 (2.3-19.7) ng/L 08/10/20 Range/Units 20:36 WBC (4.8-10.8) x10^3/uL RBC (4.70-6.10) 10^6/uL Hgb (14.0-18.0) g/dL Hct (42.0-52.0) % MCV (80.0-94.0) fL MCH (27.0-31.0) pg MCHC (32.0-36.0) g/dL RDW (12.0-15.0) % Plt Count (130-450) 10^3/uL MPV (7.4-11.4) fL Neut # (Auto) (1.5-6.6) 10^3/uL Lymph # (Auto) (1.5-3.5) 10^3/uL [place] # (Auto) (0.0-1.0) 10^3/uL Eos # (Auto) (0.0-0.7) 10^3/uL Baso # (Auto) (0.0-0.1) 10^3/uL Absolute Nucleated RBC x10^3/uL Nucleated RBC % /100WBC Sodium (135-145) mmol/L Potassium (3.5-5.0) mmol/L Chloride (101-111) mmol/L Carbon Dioxide (21-32) mmol/L Anion Gap (6-13) BUN (6-20) mg/dL Creatinine (0.6-1.2) mg/dL Estimated GFR (MDRD) (>89) Glucose (70-100) mg/dL POC Whole Bld Glucose 109 H (70 - 100) mg/dL Calcium (8.5-10.3) mg/dL Phosphorus (2.5-4.6) mg/dL Magnesium (1.7-2.8) mg/dL Troponin I High Sens (2.3-19.7) ng/L ABX Reporting Has patient been on IV antibiotics over the past 48 hours?: Yes Sepsis Event Note (H) - Evaluation Current Stage of Sepsis: Sepsis Possible source of Sepsis: positive: Unknown - Sepsis Criteria Sepsis Criteria: Recorded Temperature greater than 38.3C or Less than 36C, Recorded Heart Rate greater than 90 bpm, WBC count greater than 12,000 or less than 4000 Assessment/Plan - Problem List (1) Transient atrial fibrillation Impression: 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 After the patient was given intravenous metoprolol, patient Corag increases to 12.5 twice daily, His pulse is treated down to 50 and 52. Patient had one time of pause at 46. Patient's atrial fibrillation converted to sinus rhythm now. We will monitor pt overnight with telemetry with this new increased dosage plus one time of Metoprolol. Patient agreed. (2) Sepsis 918,Patient has no fever, WBC is normal, blood culture is negative for bacteremia. Urinalysis indicated contamination. It is unclear infection resource.Patient intravenous antibiotics already changed to p.o. antibiotics. add probiotics 08/10 Patient Still has a spotted fever on last night. although Patient WBC is normal now, UA reveals likely contamination, CXR reveals no acute process. it is unclear the resource to cause pt's fever. continue with meropenem and vancomycin IV Patient reported he feels much better than yesterday. He has no fever from yesterday. WBC is 11 from 18 at admission. Blood culture is negative for bacteremia.Urine culture and sensitivity study are still pending. Continue antibiotics vancomycin and meropenem, We will adjust antibiotics as culture come back. (3) Abdominal wall seroma Conclusion/Plan: This is evident abdominal wall seroma on CT of the abdomen and pelvis status post of hernia repair, pt denies pain, there is no swelling or erythema, or tenderness in the abdominal wall at the surgery site. surgery site is healed. Abdominal exam is unremarkable, and do not suspect that this is infected at this time. We will continue to monitor and consult general surgery if necessary. (4) Type 2 diabetes mellitus Conclusion/Plan: stable, continue carb controlled diet and a sliding scale. (5) History of pulmonary embolism Conclusion/Plan: stable, pt had a history of a provoked pulmonary embolism back in 2012. He is no longer anticoagulation. Continue baby aspirin. (6) Hypertension Conclusion/Plan: stable, We will hold his home antihypertensives in the setting of sepsis. We will resume when clinically indicated. (7) Atrial bigeminy Conclusion/Plan: 08/10 continue tele monitor, pt show once HR 45 although pt did not report dizziness, SOB, or bradycardia symptoms, will close monitor and order EKG as needed. Electrolytes is in the normal range His EKG is consistent with atrial bigeminy. It is a sinus rhythm with frequent PACs. He is asymptomatic. We will check a TSH in the morning. We will resume his home carvedilol when his blood pressure can tolerate it.
[2020-08-11] MEDS: carvediloL 12.5 MG TABLET PO SCH (21:01)
[2020-08-12] MEDS: INSULIN ASPART 300 UNIT/3 ML PEN SUBQ SCH (08:22)
[2020-08-12] MEDS: carvediloL 12.5 MG TABLET PO SCH (08:24)
[2020-08-12] MEDS: SACCHAROMYCES BOULARDII 250 MG CAPSULE PO SCH (08:24)
[2020-08-12] MEDS: AMOX/CLAV 875 MG/125 MG TABLET PO SCH (08:26)
[2020-08-12] MEDS: ENOXAPARIN 40 MG/0.4 ML SYRINGE SUBQ SCH (08:26)
[2020-08-12] MEDS: ASPIRIN CHEW 81 MG TABLET PO SCH (08:26)
[2020-08-12] MEDS ORDERED: IOVERSOL 320 100 ML VIAL IVP ONE ×2 (08:41→09:32)
[2020-08-12] MEDS: SODIUM CHLORIDE FLUSH 0.9% 10 ML SYRINGE IVP SCH (08:54)
--- NOTE | 2020-08-12 10:57 | Discharge Plan ---
Discharge Plan Problem Reviewed?: Yes Disposition: Home, Self Care Condition: Stable Prescriptions: Amox/Clav 875/125 [Augmentin 875/125] 1 tab PO BID #14 tablet Saccharomyces Boulardii [Florastor] 250 mg PO BIDWM #30 capsule Rivaroxaban [Xarelto] 20 mg PO DAILY #30 tablet Diet: Regular Activity Restrictions: Activity as Tolerated Shower Restrictions: No Driving Restrictions: No Instruction Topics: Amoxicillin Clavulanic Acid extended-release tablets, Atrial Fibrillation Health Concerns: You presented to our hospital with complaints of fever and severe chills that have turned into what we call rigors. White cell count was elevated, blood pressure was mildly low so we were concerned about sepsis. The only source of infection we could find was a urinalysis that indicated a urinary tract infection. Urinary tract infection in men are associated with large prostates. Chest x-ray was negative for pneumonia. You were COVID negative. Influenza negative. CT of the abdomen was done because you had recent hernia repair and we wanted to make sure there was no wound infection. The CT scan of the abdomen only showed a sterile fluid collection called a "seroma". It was not infected. Blood cultures were negative. Although urinalysis was positive for infection, the final urine culture grew polymicrobial growth. This included potential pathogens for a urinary tract infection as well as contamination. You responded to the empiric treatment for a urinary tract infection, and your white cell count is normal. You do not have a fever. We will complete treatment as a urinary tract infection with Augmentin pills. While here you also developed a new irregular heartbeat called atrial fibrillation with a rapid heart rate. The rate is now well controlled after one dose of a heart slowing medicine similar to your Coreg that you already take. However, the source of atrial fibrillation can be blood clots to the lungs. We did a CT angiogram of the chest to make sure you did not have blood clots. You have also been started on medication to stop blood clots from forming inside your heart chambers from the atrial fibrillation that then cause a stroke. It is a medicine you have taken in the past for pulmonary embolic called Xarelto. 1 of the tests we wanted to do to you was an echocardiogram which is an ultrasound of the heart. This lets us assess if 1 of your heart chambers is enlarged, or if you have heart valvular heart disease causing your atrial fibrillation. Unfortunately by the time your provider ordered that test, the echocardiogram network operations center technician was gone for the day and for the weekend. The network operations center technician does not return till next week. You can get the echocardiogram in the outpatient setting. We will asked Dr. Israel to please make that happen. Plan of Treatment: 1. Complete antibiotic therapy with Augmentin 2. Continue control of atrial fibrillation heart rate with Coreg 3. Decrease the risk of stroke from atrial fibrillation by starting Xarelto 4. See Dr. Israel in the next 1 to [address] Israel order an echocardiogram for you. Care Goals: To remain without recurrence of infection, and revert back to regular heart rate and regular rhythm without atrial fibrillation Assessment: Patient understands care goals and will follow through No Smoking: If you smoke, Please STOP! Call for help. Follow-up with: Hector Israel MD [Primary Care Provider] -
--- NOTE | 2020-08-12 11:45 | CT Report ---
PROCEDURE: ANGIO CHEST WO INDICATIONS: hx of pe, new onset afib CONTRAST: IV CONTRAST: Optiray 320 ml: 80 PO CONTRAST: *NO PO CONTRAST TECHNIQUE: After the administration of intravenous contrast, 2 mm thick sections acquired from the pulmonary api amparo to the posterior costophrenic angles. 3-dimensional maximum intensity projection (MIP) coronal a nd sagittal reformats were then acquired through the thorax. For radiation dose reduction, the follow ing was used: automated exposure control, adjustment of mA and/or kV according to patient size. COMPARISON: Correlation is made with chest radiograph 08/07/2020 and overlapping portions of abdomen and pelvis CT / FINDINGS: Image quality: Motion artifact is noted. Pulmonary arteries: Pulmonary arteries are normal in size, and demonstrate no intraluminal filling d efects to suggest central pulmonary embolism. Lungs and pleura: Lungs are clear. No pleural effusions or pneumothorax. Central and peripheral ai rways are patent. Mediastinum: Heart size is normal, without pericardial effusion. No mediastinal or hilar adenopathy . Thoracic aorta is normal in caliber and enhancement. Esophagus is normal in caliber, without hiat al hernia. Bones and chest wall: No suspicious bony lesions. Ribs and thoracic spine appear intact throughout. The thyroid is normal. No axillary or supraclavicular adenopathy. Abdomen: Cholecystectomy clips are seen. Mild fluid is seen involving the anterior abdominal wall s uperiorly. Visualized upper abdominal solid organs appear normal in the early arterial phase of enhan cement. IMPRESSION: Limited study demonstrating no findings of pulmonary embolism. Mild subcutaneous fluid can be partially seen involving the anterior abdominal wall. Incidental note is made of: Cholecystectomy clips Reviewed by: Werner Falk MD on 08/12/2020 10:44 AM AKRADHA Approved by: Werner Falk MD on 08/12/2020 10:44 AM AKRADHA Station ID: [id number]
[2020-08-12 14:34] VITALS: BP 158/81
--- NOTE | 2020-08-12 14:44 | DISCHARGE SUMMARY ---
"Discharge Summary Admit Date: 08/08/20 Discharge Date: 08/12/20 Discharging Provider: Ada Condon MD Primary Care Provider: Hector Israel MD Code Status: Attempt Resuscitation Condition at Discharge: Stable Discharge Disposition: 01 Home, Self Care - DIAGNOSES Discharge Diagnoses with Status of Each Condition: 1. Sepsis with UTI 2. Intermittent atrial fibrillation, new onset 3. Abdominal wall seroma 4. Type 2 diabetes mellitus, controlled not on long-term insulin 5. Hypertension 6. History of pulmonary embolism - HPI History of Present Illness: This is a 64-year-old male with a past medical history significant for type 2 diabetes mellitus, hypertension, history of pulmonary embolism [facility] of fever and chills that began at around 2 AM. He states he woke up to a.m. with severe rigors and chills and he noted that his temperature was over 102 F. He continue to measure his temperature throughout the day and it went as high as 104 F. He took NyQuil with improvement in his fever. His fever returned again and so he contacted his primary care provider who asked him to contact the [employer] hotline. He was then asked to contact his surgeon given he had an incisional hernia repair on July 17. His surgeon's office recommended that he go to the emergency department if his fever persists greater than 102 F and this evening his temperature remained quite elevated. He reports a little nausea but no vomiting. He felt dizzy and lightheaded briefly while here in the emergency department when he was hypotensive but this has since resolved. He does report some dysuria but denies urgency/hematuria. He reports no abdominal pain. Denies any chest pain or dyspnea. He reports no recent sick contacts. He has not been leaving the house much but when he does he wears a mask on a regular basis. In the emergency department, he was found to be febrile with a temperature of 38.6 C. Initial heart rate is 100. His initial blood pressure is 100/58 and this decreased to 87/63. He was given over 2 L of lactated Ringer's with improvement in his blood pressure. He was not tachypneic and was saturating well on room air. His labs are significant for a white count of 18.3 with a left shift. His lactic acid was 2.2. He was checked for influenza which was negative. His urinalysis was suggestive of infection. He underwent a CT of the abdomen and pelvis with IV contrast which showed a fluid collection at the site of the hernia repair which is likely a seroma. There was concern for possible cystitis on imaging. He received vancomycin, cefepime, Flagyl IV in the emergency department. Given the above findings, medicine was consulted for admission. I did discuss goals of care wtih the patient and he would like to be a full code. - Past Medical History Cardiovascular: reports: Pulmonary embolism Respiratory: reports: Asthma Neuro: reports: Headaches, Migraines Endocrine/Autoimmune: reports: Type 2 diabetes GI: reports: GERD, Diverticulitis : reports: Kidney stones HEENT: reports: None Musculoskeletal: reports: Osteoarthritis, Other MRSA Hx?: No - Past Surgical History General: reports: Cholecystectomy, Bowel surgery, Other (Hernia repair) Ortho: reports: Carpal Tunnel surgery, Spine surgery HEENT: reports: Tonsil/Adenoidectomy - CONSULTS | PROCEDURES Procedures: 1. Chest x-ray without acute process. 2. Abdomen pelvis CT with small amount of unencapsulated, nonenhancing subcutaneous fluid associated with a small wide necked herniorrhaphy site. Seroma or hematoma. Abscess less likely. Mild hepatomegaly and hepatic steatosis. Mild prostatomegaly. Mild bladder wall thickening. Consider cystitis. 3. Chest thorax CT angiogram. No pulmonary emboli. Lungs clear. No pericardial effusion. Mild fluid in the anterior abdominal wall seen before. 4. Blood cultures negative after 2 days 5. Urine culture with polymicrobial growth - HOSPITAL COURSE Hospital Course: He was admitted to the hospital for sepsis with UTI. He was treated with IV antibiotics in the form of cefepime, meropenem, Flagyl, vancomycin until we narrowed down that it was a UTI. Blood cultures were negative. Urine cultures showed polymicrobial growth we ended up switching him to p.o. Augmentin. He remained afebrile after 24 hours of antibiotics. We did look at the seroma as a possible source of infection but was not felt to be the cause since there is no redness, heat, drainage. He then developed new onset atrial fibrillation. He responded promptly to IV dose Lopressor x1. Resumed on his usual Coreg. He was started on Xarelto since he was used to taking it before from his history of PE. This gentleman has a history of PE 1 year after having open reduction internal fixation repair of an ankle. He did incidentally for most of that year because of multiple surgeries. He has been recently sedentary because of his recent abdominal wall surgery. As such we did a CT pulmonary angiogram to make sure his A. fib was not associated with a PE and it was not. We attempted to do an echocardiogram, but by the time he ordered the test, the target aircraft technician was gone for the next 3 days. As such the patient will need an outpatient echocardiogram when he sees his primary care provider. Diabetes was well controlled during his stay. Hypertension was treated with his usual home meds. He is discharged in stable condition. To complete his antibiotics. Temperature is 36.8. Pulse is 71. Blood pressure 158/81. Respirations 16 and 95% on room air. He is 5 foot 9 inches tall, 98.5 kg. He is a very measured, organized gen [facility] cent[facility] that has all of his medical records typed up with past medical history and medications list. All of my discharge instructions were carefully reviewed with him. Neck is supple. Lungs are clear. Regular rate and rhythm at this time. A flutter on telemetry. Alternates between being sinus, A. fib or a flutter. All rate controlled. Abdomen is soft, nontender except around his incision site and seroma. Even then it is mild tenderness, no rebound or guarding. Normal bowel sounds. No redness or heat. Extremities are without edema. He is asked to follow-up with his primary care provider to make sure he gets that echo. Follow-up with general surgery on the seroma. At this time there is no urgent need for follow-up other than routine follow-up. He may need referral for urology if he continues to have urinary tract infections. - ALLERGIES Allergies/Adverse Reactions: Allergies Allergy/AdvReac Type Severity Reaction Status Date / Time No Known Drug Allergies Allergy Verified 04/10/18 16:42 - MEDICATIONS Home Medications: Ambulatory Orders Medication Instructions Recorded Confirmed Acetaminophen [Tylenol] 650 mg PO Q6H PRN 04/10/18 08/08/20 Celecoxib 100 mg PO BID 04/10/18 08/08/20 Cetirizine [ZyrTEC] 10 mg PO DAILY 04/10/18 08/08/20 Ibuprofen [Motrin Ib] 200 mg PO TID PRN 04/10/18 08/08/20 Metformin HCl 1,000 mg PO BIDWM 04/10/18 08/08/20 Pantoprazole Sodium 40 mg PO DAILY 04/10/18 08/08/20 Simvastatin 40 mg PO QPM 04/10/18 08/08/20 Carvedilol 6.25 mg PO BID 07/12/20 08/08/20 Hydrochlorothiazide 12.5 mg PO DAILY 07/12/20 08/08/20 Losartan Potassium 25 mg PO QPM 07/12/20 08/08/20 Cyanocobalamin (Vitamin B-12) 1 ml IM Q28D 07/17/20 08/08/20 [Cyanocobalamin Injection] Amlodipine Besylate [Norvasc] 10 mg PO DAILY 08/08/20 08/08/20 Fluticasone Propion/Salmeterol 2 puffs IH DAILY 08/08/20 08/08/20 [Wixela 250-50 Inhub] Amox/Clav 875/125 [Augmentin 1 tab PO BID #14 tablet 08/12/20 875/125] Rivaroxaban [Xarelto] 20 mg PO DAILY #30 tablet 08/12/20 Saccharomyces Boulardii [Florastor] 250 mg PO BIDWM #30 capsule 08/12/20 - LABS Result Diagrams: 08/11/20 04:45 08/11/20 04:45 - SEPSIS Current Stage of Sepsis: Sepsis Possible source of Sepsis: Unknown Sepsis Criteria: Recorded Temperature greater than 38.3C or Less than 36C, Recorded Heart Rate greater than 90 bpm, WBC count greater than 12,000 or less than 4000"
== END 2020-08-12 14:05 | disposition home or self-care (01) | DRG 872 ==
LOC: ED 21:13 → ICU 08-08 00:54
PROVIDERS: ADMIT Internal Medicine; ATTEND Specialist
DX: A41.9 Sepsis, unspecified organism (principal); J45.909 Unspecified asthma, uncomplicated; K91.872 Postprocedural seroma of a digestive system organ or structure following a digestive system procedure; N30.90 Cystitis, unspecified without hematuria; Z20.828 Contact with and (suspected) exposure to other viral communicable diseases; Y83.8 Other surgical procedures as the cause of abnormal reaction of the patient, or of later complication, without mention of misadventure at the time of the procedure; I48.91 Unspecified atrial fibrillation; E11.9 Type 2 diabetes mellitus without complications; I10 Essential (primary) hypertension; K21.9 Gastro-esophageal reflux disease without esophagitis; K52.9 Noninfective gastroenteritis and colitis, unspecified; Z79.82 Long term (current) use of aspirin; Z79.1 Long term (current) use of non-steroidal anti-inflammatories (NSAID); Z79.4 Long term (current) use of insulin; Z79.84 Long term (current) use of oral hypoglycemic drugs; Z79.891 Long term (current) use of opiate analgesic; Z79.899 Other long term (current) drug therapy; Z86.711 Personal history of pulmonary embolism; Z87.442 Personal history of urinary calculi
CPT/HCPCS: 36415; 71045; 71275; 74177; 80048; 80053; 80202; 81001; 83605; 83735; 84100; 84443; 84484; 85025; 87040; 87086; 87150; 87275; 87276; 93005; 96365; 96366; 96368; 99283; 99285; A9270; J1650; J2185; J3370; J7120; Q9967; U0004

== ENCOUNTER 2020-08-22 10:24 | Outpatient (CLI) | payer MEDICARE | END 2020-08-22 10:25 | disposition home or self-care (01) | LOC: DI 10:24 | PROVIDERS: ATTEND Internal Medicine | DX: I48.91 Unspecified atrial fibrillation (principal) | CPT/HCPCS: 93306 ==

== ENCOUNTER 2020-09-29 11:16 | Outpatient (CLI) | payer MEDICARE ==
[2020-09-29 11:40] LABS: CREATININE 1.1 mg/dL (0.6-1.2)
[2020-09-29] MEDS ORDERED: IOVERSOL 320 50 ML VIAL ONE (12:09)
[2020-09-29] MEDS ORDERED: IOVERSOL 320 100 ML VIAL IVP ONE ×2 (12:09→16:06)
[2020-09-29] MEDS ORDERED: IOVERSOL 320 50 ML VIAL PO ONE (16:06)
--- NOTE | 2020-09-29 20:06 | CT Report ---
PROCEDURE: Abdomen/Pelvis W INDICATIONS: VENTRAL HERNIA CONTRAST: IV CONTRAST: Optiray 320 ml: 100 PO CONTRAST: Optiray 320 ml50 TECHNIQUE: After the administration of both oral and weight appropriate dose of intravenous contrast, 5 mm thick sections acquired from the diaphragms to the symphysis. 5 mm thick coronal and sagittal reformats w ere acquired. For radiation dose reduction, the following was used: automated exposure control, adj ustment of mA and/or kV according to patient size. COMPARISON: 08/07/2020. FINDINGS: Image quality: Excellent. ABDOMEN: Lung bases: Lung bases are clear. Heart size is normal. Solid organs: Liver and spleen are normal in size and enhancement. Diffuse hepatic steatosis Gallbl adder is surgically absent Biliary system is non dilated. Pancreas enhances normally. No adrenal n odules. Kidneys demonstrate normal size and enhancement, without hydronephrosis. Peritoneum and bowel: Bowel loops demonstrate normal wall thickness and caliber. No free fluid or a ir. Stable postsurgical changes rectosigmoid junction. Nodes and vessels: No retroperitoneal or mesenteric adenopathy by size criteria. Aorta and inferior vena cava are normal in size. Miscellaneous: Healing ventral vertical incision is again noted. Stable postoperative changes in the lower anterior abdominal wall compatible with prior partial abdominal plasty. Previously described wi de necked fat-containing supraumbilical ventral hernia to the left of midline has increased substanti ally in size. Its neck now measures approximately 11.5 cm in diameter (image 48, series 3). It now co ntains a moderate segment of small bowel without evidence for incarceration or strangulation. No flui d identified within the hernia sac. Previously described fluid collection surrounding site of hernior rhaphy has resolved. PELVIS: Genitourinary: Bladder wall thickness is normal. Mild prostate enlargement. Miscellaneous: No inguinal hernias or adenopathy. Bones: No suspicious bony lesions. No acute vertebral body compression fractures. Multilevel lumbar spondylosis most pronounced at L5-S1. IMPRESSION: 1. Interval enlargement of large ventral hernia noted to the left of midline supraumbilical region wh ich now contains a moderate segment of nondilated small bowel without evidence of strangulation. No o bstructive findings proximally. 2. Hepatomegaly with hepatic steatosis, unchanged. 3. Mild prostatomegaly 4. Status post cholecystectomy Reviewed by: Sergio Reyes MD on 09/29/2020 7:05 PM [facility] Approved by: Sergio Reyes MD on 09/29/2020 7:05 PM [facility] Station ID: [id number]
== END 2020-09-29 11:17 | disposition home or self-care (01) ==
LOC: DI 11:16
PROVIDERS: ATTEND Surgery
DX: K43.9 Ventral hernia without obstruction or gangrene (principal); K76.0 Fatty (change of) liver, not elsewhere classified; N40.0 Benign prostatic hyperplasia without lower urinary tract symptoms; Z90.49 Acquired absence of other specified parts of digestive tract
CPT/HCPCS: 36415; 74177; 82565; Q9967

== ENCOUNTER 2020-12-18 14:50 | Outpatient (CLI) | payer MEDICARE | END 2020-12-18 23:59 | disposition home or self-care (01) | LOC: COV 14:50 | PROVIDERS: ATTEND Family Medicine | DX: Z20.822 Contact with and (suspected) exposure to COVID-19 (principal) ==

== ENCOUNTER 2022-04-09 06:54 | Outpatient (CLI) | payer MEDICARE ==
--- NOTE | 2022-04-09 15:22 | Ultrasound Report ---
PROCEDURE: Duplex Lwr Ext Arterial LT INDICATIONS: VASCULAR INSUFFICIENCY TECHNIQUE: Color and pulse Doppler interrogation was performed of the left lower extremity arterial system, with image documentation. COMPARISON: None FINDINGS: Common femoral artery: 65 cm/sec, with triphasic flow. Deep femoral artery: 38 cm/sec, with triphasic flow. Proximal superficial femoral artery: 77 cm/sec, with triphasic flow. Mid superficial femoral artery: 69 cm/sec, with triphasic flow. Distal superficial femoral artery: 101 cm/sec, with triphasic flow. Popliteal artery: 51 cm/sec, with triphasic flow. Posterior tibial artery: 102 cm/sec, with triphasic flow. Anterior tibial artery/dorsalis pedis: 67/49 cm/sec, with triphasic flow. Cortez-scale imaging description: No visualized plaque. IMPRESSION: No hemodynamically significant stenosis. Reviewed by: Tori Bocanegra MD on 04/09/2022 3:21 PM PDT Approved by: Tori Bocanegra MD on 04/09/2022 3:21 PM PDT Station ID: [id number]
== END 2022-04-09 06:55 | disposition home or self-care (01) ==
LOC: DI 06:54
PROVIDERS: ATTEND Family Medicine
DX: I99.8 Other disorder of circulatory system (principal)

== ENCOUNTER 2022-06-07 06:30 | Day surgery (SDC) | payer MEDICARE ==
--- NOTE | 2022-06-07 07:16 | ANESTHESIA ---
Pre-Anesthesia VS, & Labs Height: 5 ft 9 in Weight (kg): 86 kg Body Mass Index: 28.0 BMI Classification: Overweight - NPO >8 hours - Lab Results Lab results reviewed: Yes <Diya Sol - Last Filed: 06/07/22 07:11> - Diagnosis Hx colon polyp (Diya Sol) - Procedure Colonoscopy (Diya Sol) Vital Signs: Temp Pulse Resp BP Pulse Ox 36.4 C L 72 18 142/94 H 97 06/07/22 06:47 06/07/22 06:47 06/07/22 06:47 06/07/22 06:47 06/07/22 06:47 - Lab Results Current Lab Results: Laboratory Tests 06/07/22 06:53: POC Whole Bld Glucose 107 H Home Medications and Allergies <Diya Sol - Last Filed: 06/07/22 07:11> <Patricia Berg - Last Filed: 06/07/22 07:28> Home Medications: Ambulatory Orders Acetaminophen [Tylenol] 650 mg PO Q6H PRN 06/06/22 Benzonatate 200 mg PO PRN PRN 06/06/22 Cholecalciferol (Vitamin D3) [Vitamin D3] 50 mcg PO BID 06/06/22 Cyanocobalamin [Vitamin B-12] 1,000 mcg IM ONCE 06/06/22 Fluticasone/Salmeterol [Advair 250-50 Diskus] 2 each IH DAILY 06/06/22 Ibuprofen [Motrin] 600 mg PO Q6H PRN 06/06/22 Multivitamin 1 each PO DAILY 06/06/22 Warfarin [Coumadin] 5 - 7.5 mg PO DAILY 06/06/22 oxyCODONE/ACET 5/325 [Percocet 5 mg/325 mg] 1 - 2 tab PO PRN PRN 06/06/22 Celecoxib 100 mg PO BID 04/10/18 Cetirizine [ZyrTEC] 10 mg PO DAILY 04/10/18 Metformin HCl 500 mg PO BIDWM 04/10/18 Pantoprazole Sodium 40 mg PO DAILY 04/10/18 Simvastatin 40 mg PO QPM 04/10/18 Carvedilol 6.25 mg PO BID 07/12/20 Losartan Potassium 25 mg PO QPM 07/12/20 hydroCHLOROthiazide [Hydrochlorothiazide] 12.5 mg PO DAILY 07/12/20 Amlodipine Besylate [Norvasc] 10 mg PO DAILY 08/08/20 Acetaminophen [Tylenol] 650 mg PO Q6H PRN 06/06/22 Benzonatate 200 mg PO PRN PRN 06/06/22 Cholecalciferol (Vitamin D3) [Vitamin D3] 50 mcg PO BID 06/06/22 Cyanocobalamin [Vitamin B-12] 1,000 mcg IM ONCE 06/06/22 Fluticasone/Salmeterol [Advair 250-50 Diskus] 2 each IH DAILY 06/06/22 Ibuprofen [Motrin] 600 mg PO Q6H PRN 06/06/22 Multivitamin 1 each PO DAILY 06/06/22 Warfarin [Coumadin] 5 - 7.5 mg PO DAILY 06/06/22 oxyCODONE/ACET 5/325 [Percocet 5 mg/325 mg] 1 - 2 tab PO PRN PRN 06/06/22 Allergies/Adverse Reactions: Allergies Allergy/AdvReac Type Severity Reaction Status Date / Time No Known Drug Allergies Allergy Verified 04/10/18 16:42 Anes History & Medical History - Anesthetic History Anesthesia Complications: reports: No previous complications Family history of Anesthesia Complications: Denies Family history of Malignant Hyperthermia: Denies - Medical History Cardiovascular: reports: Hypertension, High cholesterol, Pulmonary embolism, Atrial fibrillation Pulmonary: reports: Asthma Gastrointestinal: reports: GERD, Diverticulitis Urinary: reports: Kidney stones Neuro: reports: Headaches, Migraines Musculoskeletal: reports: Osteoarthritis, Chronic back pain, Other Endocrine/Autoimmune: reports: Type 2 diabetes Smoking Status: Never smoker History of Cancer?: No - Surgical History General: reports: Cholecystectomy, Bowel surgery, Colonoscopy, Other Eyes Ears Nose Throat (EENT): reports: Tonsil/Adenoidectomy Urologic: reports: Ureterolithotomy (stones) Orthopedic: reports: Carpal Tunnel surgery, Spine surgery (C3-4 fusion), Other <Diya Sol - Last Filed: 06/07/22 07:11> Exam General: Alert, Oriented x3 Dental: WNL Mouth Openin Fingerbreadth Neck Mobility: Reduced Mallampati classification: II Thyromental Distance: 4-6 cm Respiratory: Lungs clear Cardiovascular: Other (atrial fibrilation) Mental/Cognitive Status: Alert/Oriented X3, Normal for patient Cognitive Status: Within normal limits <Diya Sol - Last Filed: 06/07/22 07:11> Plan Anesthesia Type: General Consent for Procedure(s) Verified and Reviewed: Yes Code Status: Attempt Resuscitation ASA classification: 2-Mild systemic disease Is this case an emergency?: No <Diya Sol - Last Filed: 06/07/22 07:11> ASA classification: 3-Severe systemic disease <Patricia Berg - Last Filed: 06/07/22 07:28>
[2022-06-07] MEDS ORDERED: LIDOCAINE-MPF 2% 5 ML VIAL ONE (07:21)
[2022-06-07] MEDS ORDERED: PROPOFOL 500 MG/50 ML 500 MG/50 ML VIAL ONE (07:21)
[2022-06-07] MEDS ORDERED: LACTATED RINGERS 1,000 ML IV ONE (08:02)
[2022-06-07 08:35] VITALS: BP 124/83
--- NOTE | 2022-06-07 13:49 | ANESTHESIA POST OP EVALUATION ---
Anesthesia Post Eval - Post Anesthesia Eval Vitals: Last Vital Signs Temp 36.6 C 06/07/22 08:30 Pulse 76 06/07/22 08:30 Resp 16 06/07/22 08:30 BP 124/83 H 06/07/22 08:30 Pulse Ox 98 06/07/22 08:30 CV Function Including HR & BP: Stable Pain Control: Satisfactory Nausea & Vomiting: Negative Mental Status: Baseline Respiratory Status: Airway Patent Hydration Status: Satisfactory Anesthesia Complications: None
== END 2022-06-07 06:31 | disposition home or self-care (01) ==
LOC: SDS 06:30
PROVIDERS: ATTEND Surgery
DX: Z12.11 Encounter for screening for malignant neoplasm of colon (principal); K57.30 Diverticulosis of large intestine without perforation or abscess without bleeding; Z86.010 Personal history of colon polyps; Z90.49 Acquired absence of other specified parts of digestive tract
CPT/HCPCS: G0121; J7120

== ENCOUNTER 2024-03-04 08:00 | Outpatient (CLI) | payer MEDICARE ==
[2024-03-04 20:09] LABS: BILIRUBIN,URINE NEGATIVE (NEGATIVE); GLUCOSE, URINE (UA) NEGATIVE (NEGATIVE); KETONES,URINE (UA) NEGATIVE (NEGATIVE); LEUKOCYTE ESTERASE, URINE NEGATIVE (NEGATIVE); NITRITE,URINE POSITIVE (NEGATIVE); OCCULT BLOOD,URINE NEGATIVE (NEGATIVE); PROTEIN,URINE NEGATIVE (NEGATIVE); UROBILINOGEN,URINE 0.2 (NORMAL) E.U./dL (NORMAL)
[2024-03-04 20:10] LABS: CLARITY,URINE HAZY (CLEAR)
[2024-03-04 20:34] LABS: RBC,URINE 0-5 /HPF (0-5); SQUAMOUS EPITHELIAL CELL,UR RARE Squamous (<= Few)
[2024-03-04 20:35] LABS: BACTERIA,URINE Many /HPF (None Seen)
== END 2024-03-04 23:59 | disposition home or self-care (01) ==
LOC: LAB.S 08:00
PROVIDERS: ATTEND Emergency Medicine
DX: R31.9 Hematuria, unspecified (principal)
CPT/HCPCS: 81001; 87077; 87086; 87181

== ENCOUNTER 2024-03-05 08:18 | Outpatient (CLI) | payer MEDICARE ==
[2024-03-05 15:05] LABS: BASOPHILS % (AUTO) 0.5 %; EOSINOPHILS # (AUTO) 0.3 10^3/uL (0.0-0.7); EOSINOPHILS % (AUTO) 5.5 %; HCT - HEMATOCRIT 43.8 % (42.0-52.0); HGB - HEMOGLOBIN 14.5 g/dL (14.0-18.0); LYMPHOCYTES # (AUTO) 1.2 10^3/uL (1.5-3.5); LYMPHOCYTES % (AUTO) 19.5 %; MEAN CORPUSCULAR HEMOGLOBIN 29.4 pg (27.0-31.0); MEAN CORPUSCULAR HGB CONC 33.1 g/dL (32.0-36.0); MEAN CORPUSCULAR VOLUME 88.7 fL (80.0-94.0); MONOCYTES # (AUTO) 0.6 10^3/uL (0.0-1.0); NEUTROPHILS % (AUTO) 64.2 %; PLT - PLATELET COUNT 200 10^3/uL (130-450); RED BLOOD COUNT 4.94 10^6/uL (4.70-6.10); RED CELL DISTRIBUTION WIDTH 13.7 % (12.0-15.0); WHITE BLOOD COUNT 6.2 x10^3/uL (4.8-10.8)
[2024-03-05 15:44] LABS: CALCIUM 9.7 mg/dL (8.5-10.3); POTASSIUM 3.7 mmol/L (3.5-4.5)
[2024-03-05 15:48] LABS: INR 4.2 (0.8-1.2); PT - PROTHROMBIN TIME 41.8 secs (9.9-12.6)
== END 2024-03-05 08:19 | disposition home or self-care (01) ==
LOC: LAB.S 08:18
PROVIDERS: ATTEND Emergency Medicine
DX: R31.9 Hematuria, unspecified (principal)
CPT/HCPCS: 36415; 80048; 85025; 85610

== ENCOUNTER 2024-03-08 08:28 | Outpatient (CLI) | payer MEDICARE | END 2024-03-08 08:29 | disposition home or self-care (01) | LOC: LAB.S 08:28 | PROVIDERS: ATTEND Emergency Medicine | DX: Z79.01 Long term (current) use of anticoagulants (principal) | CPT/HCPCS: 36416; 85610 ==

== ENCOUNTER 2024-03-10 09:47 | Outpatient (CLI) | payer MEDICARE | END 2024-03-10 09:48 | disposition home or self-care (01) | LOC: LAB.S 09:47 | PROVIDERS: ATTEND Emergency Medicine | DX: R31.9 Hematuria, unspecified (principal) | CPT/HCPCS: 36416; 85610 ==

== ENCOUNTER 2024-03-17 11:54 | Outpatient (CLI) | payer MEDICARE ==
[2024-03-17 14:45] LABS: ABSOLUTE RETICS # AUTO 0.066 10^6/uL (0.020-0.110); BASOPHILS # (AUTO) 0.1 10^3/uL (0.0-0.1); BASOPHILS % (AUTO) 0.8 %; EOSINOPHILS # (AUTO) 0.3 10^3/uL (0.0-0.7); EOSINOPHILS % (AUTO) 5.5 %; HCT - HEMATOCRIT 42.3 % (42.0-52.0); HGB - HEMOGLOBIN 13.9 g/dL (14.0-18.0); LYMPHOCYTES # (AUTO) 1.5 10^3/uL (1.5-3.5); LYMPHOCYTES % (AUTO) 23.9 %; MEAN CORPUSCULAR HEMOGLOBIN 29.2 pg (27.0-31.0); MEAN CORPUSCULAR HGB CONC 32.9 g/dL (32.0-36.0); MEAN CORPUSCULAR VOLUME 88.9 fL (80.0-94.0); MEAN PLATELET VOLUME 9.1 fL (7.4-11.4); MONOCYTES # (AUTO) 0.5 10^3/uL (0.0-1.0); MONOCYTES % (AUTO) 8.4 %; NEUTROPHILS # (AUTO) 3.8 10^3/uL (1.5-6.6); NEUTROPHILS % (AUTO) 61.2 %; PLT - PLATELET COUNT 198 10^3/uL (130-450); RED BLOOD COUNT 4.76 10^6/uL (4.70-6.10); RED CELL DISTRIBUTION WIDTH 13.5 % (12.0-15.0); RETICULOCYTE COUNT % (AUTO) 1.38 % (0.5-2.3); WHITE BLOOD COUNT 6.2 x10^3/uL (4.8-10.8)
[2024-03-17 14:47] LABS: BILIRUBIN,URINE NEGATIVE (NEGATIVE); GLUCOSE, URINE (UA) NEGATIVE (NEGATIVE); KETONES,URINE (UA) NEGATIVE (NEGATIVE); LEUKOCYTE ESTERASE, URINE NEGATIVE (NEGATIVE); NITRITE,URINE NEGATIVE (NEGATIVE); OCCULT BLOOD,URINE NEGATIVE (NEGATIVE); PROTEIN,URINE NEGATIVE (NEGATIVE); UROBILINOGEN,URINE 0.2 (NORMAL) E.U./dL (NORMAL)
[2024-03-17 14:49] LABS: CLARITY,URINE CLEAR (CLEAR)
[2024-03-17 15:09] LABS: % IRON SATURATION 22 % (20-50); ALBUMIN/GLOBULIN RATIO 1.6 (1.0-2.2); ALKALINE PHOSPHATASE 50 IU/L (42-121); ALT ALANINE AMINOTRANSFERASE 20 IU/L (10-60); AST ASPARTATE AMINOTRANSFERASE 19 IU/L (10-42); BILIRUBIN,TOTAL 0.7 mg/dL (0.2-1.0); BUN - BLOOD UREA NITROGEN 15 mg/dL (6-20); CALCIUM 9.6 mg/dL (8.5-10.3); CARBON DIOXIDE - CO2 28 mmol/L (21-32); CHLORIDE 105 mmol/L (101-111); CHOLESTEROL 131 mg/dL; CREATININE 0.9 mg/dL (0.6-1.3); GFR - MDRD 84 (>89); GLUCOSE 97 mg/dL (74-104); HDL CHOLESTEROL 43 mg/dL; IRON 78 ug/dL (50-212); LDL CHOLESTEROL,CALCULATED 59 mg/dL; LDL/HDL RATIO 1.4 (<3.6); POTASSIUM 3.6 mmol/L (3.5-4.5); SODIUM 139 mmol/L (135-145); TOTAL IRON BINDING CAPACITY 358 ug/dL (250-450); TOTAL PROTEIN 6.5 g/dL (6.4-8.9); TRANSFERRIN 256 mg/dL (203-362); TRIGLYCERIDES 143 mg/dL (48-352); VLDL CHOLESTEROL 29 mg/dL
[2024-03-17 15:15] LABS: FERRITIN 30.6 ng/mL (23.9-336.2)
[2024-03-17 16:34] LABS: BACTERIA,URINE None Seen /HPF (None Seen); RBC,URINE 0-5 /HPF (0-5); SQUAMOUS EPITHELIAL CELL,UR NONE SEEN (<= Few); WBC,URINE 0-3 /HPF (0-3)
[2024-03-17 21:29] LABS: ESTIMATED AVERAGE GLUCOSE 111 mg/dL (70-100); HEMOGLOBIN A1c% 5.5 % (4.27-6.07)
== END 2024-03-17 11:55 | disposition home or self-care (01) ==
LOC: LAB.S 11:54
PROVIDERS: ATTEND Physician Assistant Medical
DX: N41.0 Acute prostatitis (principal); Z86.2 Personal history of diseases of the blood and blood-forming organs and certain disorders involving the immune mechanism; E11.9 Type 2 diabetes mellitus without complications; R31.9 Hematuria, unspecified; E55.9 Vitamin D deficiency, unspecified
CPT/HCPCS: 36415; 80053; 80061; 81001; 82306; 82607; 82728; 82746; 83036; 83540; 83721; 84153; 84466; 85025; 85045; 85610; 87086

== ENCOUNTER 2024-03-20 13:51 | Outpatient (CLI) | payer MEDICARE | END 2024-03-20 13:52 | disposition home or self-care (01) | LOC: LAB 13:51 | PROVIDERS: ATTEND Physician Assistant Medical | DX: I48.91 Unspecified atrial fibrillation (principal) | CPT/HCPCS: 36416; 85610 ==

== ENCOUNTER 2024-03-24 09:26 | Outpatient (CLI) | payer MEDICARE ==
[2024-03-24 12:38] LABS: INR 1.3 (0.8-1.2); PT - PROTHROMBIN TIME 14.1 secs (9.9-12.6)
== END 2024-03-24 09:27 | disposition home or self-care (01) ==
LOC: LAB.N 09:26
PROVIDERS: ATTEND Physician Assistant Medical
DX: I48.91 Unspecified atrial fibrillation (principal)
CPT/HCPCS: 36415; 85610

== ENCOUNTER 2024-03-26 10:55 | Outpatient (CLI) | payer MEDICARE | END 2024-03-26 10:56 | disposition home or self-care (01) | LOC: LAB 10:55 | PROVIDERS: ATTEND Physician Assistant Medical | DX: I48.91 Unspecified atrial fibrillation (principal); Z79.01 Long term (current) use of anticoagulants; Z86.711 Personal history of pulmonary embolism | CPT/HCPCS: 36416; 85610 ==

== ENCOUNTER 2024-03-30 15:34 | Emergency (ER) | payer MEDICARE ==
[2024-03-30 15:57] LABS: BASOPHILS # (AUTO) 0.1 10^3/uL (0.0-0.1); BASOPHILS % (AUTO) 0.7 %; EOSINOPHILS # (AUTO) 0.4 10^3/uL (0.0-0.7); EOSINOPHILS % (AUTO) 4.6 %; HCT - HEMATOCRIT 44.3 % (42.0-52.0); HGB - HEMOGLOBIN 14.9 g/dL (14.0-18.0); LYMPHOCYTES # (AUTO) 1.7 10^3/uL (1.5-3.5); LYMPHOCYTES % (AUTO) 22.8 %; MEAN CORPUSCULAR HEMOGLOBIN 29.8 pg (27.0-31.0); MEAN CORPUSCULAR HGB CONC 33.6 g/dL (32.0-36.0); MEAN CORPUSCULAR VOLUME 88.6 fL (80.0-94.0); MEAN PLATELET VOLUME 8.7 fL (7.4-11.4); MONOCYTES # (AUTO) 0.6 10^3/uL (0.0-1.0); MONOCYTES % (AUTO) 8.5 %; NEUTROPHILS # (AUTO) 4.8 10^3/uL (1.5-6.6); NEUTROPHILS % (AUTO) 63.1 %; PLT - PLATELET COUNT 215 10^3/uL (130-450); RED CELL DISTRIBUTION WIDTH 13.7 % (12.0-15.0); WHITE BLOOD COUNT 7.6 x10^3/uL (4.8-10.8)
--- NOTE | 2024-03-30 16:05 | ED Physician Documentation ---
History of Present Illness - Stated complaint Stated Complaint: CHEST PX - Chief complaint Chief Complaint: Cardiac - History obtained from History obtained from: Patient, Family - History of Present Illness Timing: How many weeks ago Pain level max: 2 Pain level now: 0 - Additonal information Additional information: Patient is a 68-year-old male who presents to the emergency department stating that over the past week or so he has had intermittent chest pain and shortness of breath, mainly when he is out walking his dogs, after about 20 minutes he states that he feels some slight pressure in his chest and stops. Symptoms resolved within about 30 seconds. He does not have any symptoms currently. He has been treated over the past 2 weeks for a UTI. First with ciprofloxacin, now changed to cefdinir. Sees urology next week for this. Has an appoint with a new pst specialist at [facility] in [place] at the end of the month. Denies any cardiac history other than intermittent A-fib. He states he has noticed some mild swelling in his ankles. No swelling or pain in the calves. He states that his INR has been erratic since starting the antibiotics. No fevers. No chills. Has not had any chest pain or shortness of breath at rest. Worse with exertion, better with rest. Review of Systems Constitutional: denies: Fever, Chills GI: denies: Vomiting, Diarrhea Skin: denies: Rash Musculoskeletal: denies: Neck pain, Back pain Neurologic: denies: Headache PD PAST MEDICAL HISTORY - Past Medical History Past Medical History: Yes Cardiovascular: Hypertension, High cholesterol, Pulmonary embolism, Atrial fibrillation Respiratory: Asthma Neuro: Headaches, Migraines Endocrine/Autoimmune: Type 2 diabetes GI: GERD, Diverticulitis : Kidney stones HEENT: None Musculoskeletal: Osteoarthritis, Chronic back pain, Other - Past Surgical History Past Surgical History: Yes General: Cholecystectomy, Bowel surgery, Colonoscopy, Other Ortho: Carpal Tunnel surgery, Spine surgery, Other HEENT: Tonsil/Adenoidectomy - Present Medications Home Medications: Ambulatory Orders Medication Instructions Recorded Confirmed Celecoxib 100 mg PO BID 04/10/18 02/11/24 Cetirizine [ZyrTEC] 10 mg PO DAILY 04/10/18 02/11/24 Metformin HCl 500 mg PO BIDWM 04/10/18 02/11/24 Pantoprazole Sodium 40 mg PO DAILY 04/10/18 02/11/24 Simvastatin 40 mg PO QPM 04/10/18 02/11/24 Carvedilol 6.25 mg PO BID 07/12/20 02/11/24 Losartan Potassium 25 mg PO QPM 07/12/20 02/11/24 hydroCHLOROthiazide 12.5 mg PO DAILY 07/12/20 02/11/24 [Hydrochlorothiazide] Amlodipine Besylate [Norvasc] 10 mg PO DAILY 08/08/20 02/11/24 Acetaminophen [Tylenol] 650 mg PO Q6H PRN 06/06/22 02/11/24 Benzonatate 200 mg PO PRN PRN 06/06/22 02/11/24 Cholecalciferol (Vitamin D3) 50 mcg PO BID 06/06/22 02/11/24 [Vitamin D3] Cyanocobalamin [Vitamin B-12] 1,000 mcg IM ONCE 06/06/22 02/11/24 Fluticasone/Salmeterol [Advair 2 each IH DAILY 06/06/22 02/11/24 250-50 Diskus] Ibuprofen [Motrin] 600 mg PO Q6H PRN 06/06/22 02/11/24 Multivitamin 1 each PO DAILY 06/06/22 02/11/24 Warfarin [Coumadin] 5 - 7.5 mg PO DAILY 06/06/22 02/11/24 oxyCODONE/ACET 5/325 [Percocet 5 1 - 2 tab PO PRN PRN 06/06/22 02/11/24 mg/325 mg] - Allergies Allergies/Adverse Reactions: Allergies Allergy/AdvReac Type Severity Reaction Status Date / Time No Known Drug Allergies Allergy Verified 03/30/24 15:44 - Social History Does the pt smoke?: No Smoking Status: Never smoker Does the pt drink ETOH?: No Does the pt have substance abuse?: No - Immunizations Immunizations are current?: Yes - POLST Patient has POLST: No PD ED PE NORMAL - Vitals Vital signs reviewed: Yes - General General: Alert and oriented X 3, No acute distress - HEENT HEENT: PERRL, Moist mucous membranes - Neck Neck: Supple, no meningeal sign - Cardiac Cardiac: RRR, Strong equal pulses - Respiratory Respiratory: No respiratory distress, Clear bilaterally - Abdomen Abdomen: Soft, Non tender, Non distended - Back Back: No CVA TTP, No spinal TTP - Derm Derm: Warm and dry, No rash - Extremities Extremities: No calf tenderness / cord, Other (Trace edema bilateral lower extremities) - Neuro Neuro: Alert and oriented X 3 - Psych Psych: Normal mood, Normal affect Results - Vitals Vitals: Vital Signs - 24 hr 03/30/24 03/30/24 03/30/24 15:44 15:46 16:55 Temperature 36.8 C 36.8 C Heart Rate 68 68 58 L Respiratory 18 18 17 Rate Blood Pressure 131/83 H 131/83 H 121/68 O2 Saturation 98 98 97 Oxygen O2 Source Room air - EKG (time done) 1556 EKG releavant findings:: EKG personally interpreted by author of this note. Relevant findings are: Rate: Rate (enter#) (56) Rhythm: NSR, Other (PAC) [place]: Normal Intervals: RBBB - Labs Labs: Laboratory Tests 03/30/24 03/30/24 03/30/24 15:43 15:43 15:43 WBC 7.6 RBC 5.00 Hgb 14.9 Hct 44.3 MCV 88.6 MCH 29.8 MCHC 33.6 RDW 13.7 Plt Count 215 MPV 8.7 Neut # (Auto) 4.8 Lymph # (Auto) 1.7 N[place]olls # (Auto) 0.6 Eos # (Auto) 0.4 Baso # (Auto) 0.1 Absolute Nucleated RBC 0.00 Nucleated RBC % 0.0 PT 37.2 H INR 3.7 H Sodium 140 Potassium 3.8 Chloride 104 Carbon Dioxide 29 Anion Gap 7.0 BUN 19 Creatinine 1.0 Estimated GFR (MDRD) 75 L Glucose 102 Calcium 10.2 Total Bilirubin 0.7 AST 21 ALT 21 Alkaline Phosphatase 51 Troponin I High Sens 7.5 B-Natriuretic Peptide Total Protein 6.9 Albumin 4.3 Globulin 2.6 Albumin/Globulin Ratio 1.7 Lipase 24 Urine Color Urine Clarity Urine pH Ur Specific Whately Urine Protein Urine Glucose (UA) Urine Ketones Urine Occult Blood Urine Nitrite Urine Bilirubin Urine Urobilinogen Ur Leukocyte Esterase Ur Microscopic Review Urine Culture Comments 03/30/24 03/30/24 15:43 16:08 WBC RBC Hgb Hct MCV MCH MCHC RDW Plt Count MPV Neut # (Auto) Lymph # (Auto) [place]oll[place] # (Auto) Eos # (Auto) Baso # (Auto) Absolute Nucleated RBC Nucleated RBC % PT INR Sodium Potassium Chloride Carbon Dioxide Anion Gap BUN Creatinine Estimated GFR (MDRD) Glucose Calcium Total Bilirubin AST ALT Alkaline Phosphatase Troponin I High Sens B-Natriuretic Peptide 48 Total Protein Albumin Globulin Albumin/Globulin Ratio Lipase Urine Color YELLOW Urine Clarity CLEAR Urine pH 6.0 Ur Specific Whately >=1.030 H Urine Protein NEGATIVE Urine Glucose (UA) NEGATIVE Urine Ketones NEGATIVE Urine Occult Blood NEGATIVE Urine Nitrite NEGATIVE Urine Bilirubin NEGATIVE Urine Urobilinogen 0.2 (NORMAL) Ur Leukocyte Esterase NEGATIVE Ur Microscopic Review NOT INDICATED Urine Culture Comments NOT INDICATED - Rads (name of study) cxr Relevant Findings:: Final report received, See rad report PD Medical Decision Making - ED course Complexity details: reviewed results, re-evaluated patient, considered differential (No ST elevation AR, no aortic dissection, no PE, no tension pneumothorax, no aortic aneurysm), d/w patient, d/w family ED course: 68-year-old male presents to the emergency department with what sounds like stable angina. He has had exertional dyspnea with chest pain that starts about 15 to 20 minutes after walking and resolves in about 30 seconds. Has never happened at rest. Currently asymptomatic. No acute findings on EKG or high- sensitivity troponin. BNP is normal. Chest x-ray does not show any acute abnormalities. His INR is 3.7. Does not have any symptoms consistent with a PE. Not tachycardic, not hypoxic. INR is therapeutic. No calf pain or swelling. Recommend that he have a cardiac stress test with his doctor, hopefully before he sees the pst specialist at the end of the month. Recommend starting on a baby aspirin daily and avoiding any significant exertion. He will contact his doctor in the morning for a cardiac stress test and follow-up. Jovanna ent and family counseled regarding signs and symptoms for which I believe and urgent re-evaluation would be necessary. Patient with good understanding of and agreement to plan and is comfortable going home at this time This document was made in part using voice recognition software. While efforts are made to proofread this document, sound alike and grammatical errors may occur. Departure - Departure Disposition: 01 Home, Self Care Clinical Impression: Stable angina Condition: Good Instructions: ED Chest Pain Angina Stable Follow-Up: Grant Hernandez MD [Provider Admit Priv/Credential] - Dipti Gavin PA [Primary Care Provider] - Tomorrow Comments: Please follow-up with your primary care provider for an urgent stress test. As we discussed you need to start on a baby aspirin daily, 81 mg by mouth. This is in addition to your current medications. Please avoid strenuous activity. If you develop chest pain during activity, please stop and rest. If the pain occurs at rest or does not resolve with resting after activity, you need to be seen in the emergency department. The closest emergency department to you with cardiology services as [facility] [place]. Your EKG shows a right bundle branch block. Return if you worsen. Your INR is 3.7 today. You can stop the cefdinir as your urinalysis is clear. Forms: PCP List Discharge Date/Time: 03/30/24 17:18
--- NOTE | 2024-03-30 16:07 | XRAY Report ---
PROCEDURE: Chest 1V INDICATIONS: Chest pain TECHNIQUE: One view of the chest was acquired. COMPARISON: Chest x-ray 08/07/20 FINDINGS: Surgical changes and devices: None. Lungs and pleura: No pleural effusions or pneumothorax. Lungs are clear. Mediastinum: Mediastinal contours appear normal. Heart size is normal. Bones and chest wall: No suspicious bony lesions. Overlying soft tissues appear unremarkable. IMPRESSION: No acute cardiopulmonary process. Reviewed by: Tori Bocanegra MD on 03/30/2024 4:06 PM PDT Approved by: Tori Bocanegra MD on 03/30/2024 4:06 PM PDT Station ID: [id number]
[2024-03-30 16:16] LABS: INR 3.7 (0.8-1.2); PT - PROTHROMBIN TIME 37.2 secs (9.9-12.6)
[2024-03-30 16:18] LABS: TROPONIN I HIGH SENSITIVITY 7.5 ng/L (2.3-19.7)
[2024-03-30 16:21] LABS: ALBUMIN 4.3 g/dL (3.2-5.5); ALBUMIN/GLOBULIN RATIO 1.7 (1.0-2.2); BILIRUBIN,TOTAL 0.7 mg/dL (0.2-1.0); CALCIUM 10.2 mg/dL (8.5-10.3); POTASSIUM 3.8 mmol/L (3.5-4.5); TOTAL PROTEIN 6.9 g/dL (6.4-8.9)
[2024-03-30 16:39] LABS: BILIRUBIN,URINE NEGATIVE (NEGATIVE); GLUCOSE, URINE (UA) NEGATIVE (NEGATIVE); KETONES,URINE (UA) NEGATIVE (NEGATIVE); LEUKOCYTE ESTERASE, URINE NEGATIVE (NEGATIVE); NITRITE,URINE NEGATIVE (NEGATIVE); OCCULT BLOOD,URINE NEGATIVE (NEGATIVE); PROTEIN,URINE NEGATIVE (NEGATIVE); UROBILINOGEN,URINE 0.2 (NORMAL) E.U./dL (NORMAL)
[2024-03-30 16:40] LABS: CLARITY,URINE CLEAR (CLEAR)
[2024-03-30 17:04] VITALS: BP 121/68; O2SAT 97
== END 2024-03-30 17:18 | disposition home or self-care (01) ==
LOC: ED 15:34
DX: I20.9 Angina pectoris, unspecified (principal); I10 Essential (primary) hypertension; I48.91 Unspecified atrial fibrillation; E78.00 Pure hypercholesterolemia, unspecified; E11.9 Type 2 diabetes mellitus without complications; Z86.711 Personal history of pulmonary embolism; Z79.01 Long term (current) use of anticoagulants; Z87.19 Personal history of other diseases of the digestive system; Z79.899 Other long term (current) drug therapy
CPT/HCPCS: 36415; 80053; 81001; 81003; 83690; 83880; 84484; 85025; 85610; 87086; 93005; 99283; 99284

== ENCOUNTER 2024-04-02 10:43 | Outpatient (CLI) | payer MEDICARE | END 2024-04-02 10:44 | disposition home or self-care (01) | LOC: LAB 10:43 | PROVIDERS: ATTEND Physician Assistant Medical | DX: I48.91 Unspecified atrial fibrillation (principal) | CPT/HCPCS: 36416; 85610 ==

== ENCOUNTER 2024-04-09 09:13 | Outpatient (CLI) | payer MEDICARE | END 2024-04-09 09:14 | disposition home or self-care (01) | LOC: LAB 09:13 | PROVIDERS: ATTEND Physician Assistant Medical | DX: I48.91 Unspecified atrial fibrillation (principal) | CPT/HCPCS: 36416; 85610 ==

== ENCOUNTER 2024-04-23 10:52 | Outpatient (CLI) | payer MEDICARE | END 2024-04-23 10:53 | disposition home or self-care (01) | LOC: LAB 10:52 | PROVIDERS: ATTEND Physician Assistant Medical | DX: I48.91 Unspecified atrial fibrillation (principal) | CPT/HCPCS: 36416; 85610 ==

== ENCOUNTER 2024-05-01 11:15 | Outpatient (CLI) | payer MEDICARE | END 2024-05-01 11:16 | disposition home or self-care (01) | LOC: LAB 11:15 | PROVIDERS: ATTEND Physician Assistant Medical | DX: I48.91 Unspecified atrial fibrillation (principal); Z79.01 Long term (current) use of anticoagulants; Z86.711 Personal history of pulmonary embolism | CPT/HCPCS: 36416; 85610 ==

== ENCOUNTER 2024-05-05 11:07 | Outpatient (CLI) | payer MEDICARE | END 2024-05-05 11:08 | disposition home or self-care (01) | LOC: LAB 11:07 | PROVIDERS: ATTEND Urology | DX: R97.20 Elevated prostate specific antigen [PSA] (principal) | CPT/HCPCS: 36415; 84153 ==

== ENCOUNTER 2024-05-14 11:21 | Outpatient (CLI) | payer MEDICARE | END 2024-05-14 11:22 | disposition home or self-care (01) | LOC: LAB 11:21 | PROVIDERS: ATTEND Physician Assistant Medical | DX: I48.91 Unspecified atrial fibrillation (principal) | CPT/HCPCS: 36416; 85610 ==

== ENCOUNTER 2024-05-17 15:15 | Emergency (ER) | payer MEDICARE ==
[2024-05-17 15:38] VITALS: O2SAT 97
[2024-05-17 15:55] LABS: BASOPHILS # (AUTO) 0.1 10^3/uL (0.0-0.1); BASOPHILS % (AUTO) 0.9 %; EOSINOPHILS # (AUTO) 0.4 10^3/uL (0.0-0.7); EOSINOPHILS % (AUTO) 5.4 %; HCT - HEMATOCRIT 45.4 % (42.0-52.0); HGB - HEMOGLOBIN 15.1 g/dL (14.0-18.0); LYMPHOCYTES # (AUTO) 1.6 10^3/uL (1.5-3.5); LYMPHOCYTES % (AUTO) 19.1 %; MEAN CORPUSCULAR HGB CONC 33.3 g/dL (32.0-36.0); MEAN CORPUSCULAR VOLUME 87.1 fL (80.0-94.0); MEAN PLATELET VOLUME 8.5 fL (7.4-11.4); MONOCYTES # (AUTO) 0.7 10^3/uL (0.0-1.0); MONOCYTES % (AUTO) 8.5 %; NEUTROPHILS # (AUTO) 5.4 10^3/uL (1.5-6.6); NEUTROPHILS % (AUTO) 65.9 %; PLT - PLATELET COUNT 194 10^3/uL (130-450); RED BLOOD COUNT 5.21 10^6/uL (4.70-6.10); RED CELL DISTRIBUTION WIDTH 13.5 % (12.0-15.0); WHITE BLOOD COUNT 8.1 x10^3/uL (4.8-10.8)
[2024-05-17 16:14] LABS: ALBUMIN 4.3 g/dL (3.2-5.5); ALBUMIN/GLOBULIN RATIO 1.4 (1.0-2.2); BILIRUBIN,TOTAL 0.8 mg/dL (0.2-1.0); CALCIUM 9.8 mg/dL (8.5-10.3); CREATININE 1.1 mg/dL (0.6-1.3); POTASSIUM 3.9 mmol/L (3.5-4.5); TOTAL PROTEIN 7.3 g/dL (6.4-8.9)
[2024-05-17 16:19] LABS: TROPONIN I HIGH SENSITIVITY 6.9 ng/L (2.3-19.7)
--- NOTE | 2024-05-17 16:19 | ED Physician Documentation ---
PD HPI DYSPNEA - Stated complaint Stated Complaint: SOA - Chief complaint Chief Complaint: Cardiac - History obtained from History obtained from: Patient - History of Present Illness Timing - onset: How many months ago Timing - duration: Months (months of dyspnea and has been getting heart eval from cardiology with heart cath 4 days ago showing nonocclusive vascular disease (only 30% per pt). So no signs of cardiogenic dyspnea.) Timing - details: Gradual onset, Still present, Waxing and waning Worsened by: Exertion Associated symptoms: Cough, Wheezing, Palpitations (intermittent atrial fib but rate controlled on carvedilol.). No: Bilateral edema Recently seen: Other (had heart cath 4 days ago without any significant findings. normal heart contractility per Cardiology summary to patient.) PD PAST MEDICAL HISTORY - Past Medical History Cardiovascular: Hypertension, High cholesterol, Pulmonary embolism, Atrial fibrillation Respiratory: Asthma Neuro: Headaches, Migraines Endocrine/Autoimmune: Type 2 diabetes GI: GERD, Diverticulitis : Kidney stones HEENT: None Musculoskeletal: Osteoarthritis, Chronic back pain, Other - Past Surgical History Past Surgical History: Yes General: Cholecystectomy, Bowel surgery, Colonoscopy, Other Ortho: Carpal Tunnel surgery, Spine surgery, Other HEENT: Tonsil/Adenoidectomy - Present Medications Home Medications: Ambulatory Orders Medication Instructions Recorded Confirmed Celecoxib 100 mg PO BID 04/10/18 02/11/24 Cetirizine [ZyrTEC] 10 mg PO DAILY 04/10/18 02/11/24 Metformin HCl 500 mg PO BIDWM 04/10/18 02/11/24 Pantoprazole Sodium 40 mg PO DAILY 04/10/18 02/11/24 Simvastatin 40 mg PO QPM 04/10/18 02/11/24 Carvedilol 6.25 mg PO BID 07/12/20 02/11/24 Losartan Potassium 25 mg PO QPM 07/12/20 02/11/24 hydroCHLOROthiazide 12.5 mg PO DAILY 07/12/20 02/11/24 [Hydrochlorothiazide] Amlodipine Besylate [Norvasc] 10 mg PO DAILY 08/08/20 02/11/24 Acetaminophen [Tylenol] 650 mg PO Q6H PRN 06/06/22 02/11/24 Benzonatate 200 mg PO PRN PRN 06/06/22 02/11/24 Cholecalciferol (Vitamin D3) 50 mcg PO BID 06/06/22 02/11/24 [Vitamin D3] Cyanocobalamin [Vitamin B-12] 1,000 mcg IM ONCE 06/06/22 02/11/24 Fluticasone Propion/Salmeterol 2 each IH DAILY 06/06/22 02/11/24 [Advair 250-50 Diskus] Ibuprofen [Motrin] 600 mg PO Q6H PRN 06/06/22 02/11/24 Multivitamin 1 each PO DAILY 06/06/22 02/11/24 Warfarin [Coumadin] 5 - 7.5 mg PO DAILY 06/06/22 02/11/24 oxyCODONE/ACET 5/325 [Percocet 5 1 - 2 tab PO PRN PRN 06/06/22 02/11/24 mg/325 mg] Albuterol Sulf [Ventolin Hfa 2 puffs INH QID #1 each 05/17/24 Inhaler] - Allergies Allergies/Adverse Reactions: Allergies Allergy/AdvReac Type Severity Reaction Status Date / Time No Known Drug Allergies Allergy Verified 05/17/24 15:32 - Social History Does the pt smoke?: No Smoking Status: Never smoker Does the pt drink ETOH?: No Does the pt have substance abuse?: No - Immunizations Immunizations are current?: Yes - POLST Patient has POLST: No PD ED PE NORMAL - Vitals Vital signs reviewed: Yes - General General: Alert and oriented X 3, No acute distress, Well developed/nourished - Neck Neck: Supple, no meningeal sign, No adenopathy - Cardiac Cardiac: RRR, No murmur - Respiratory Respiratory: No respiratory distress. No: Clear bilaterally (diffuse mild exp wheezing noted. No fine crackles. ) - Derm Derm: Normal color, Warm and dry - Extremities Extremities: No edema, No calf tenderness / cord - Neuro Neuro: Alert and oriented X 3, No motor deficit, Normal speech Results - Vitals Vitals: Oxygen O2 Source Room air - EKG (time done) in triage EKG releavant findings:: EKG personally interpreted by author of this note. Relevant findings are: Rate: Rate (enter#) (68) Rhythm: NSR (with freq PACs (bigeminy)) Intervals: Normal IA, RBBB Ischemia: Non specific changes Compare to prior EKG: Unchanged from prior EKG - Labs Labs: Laboratory Tests 05/17/24 05/17/24 05/17/24 15:50 15:50 15:50 WBC 8.1 RBC 5.21 Hgb 15.1 Hct 45.4 MCV 87.1 MCH 29.0 MCHC 33.3 RDW 13.5 Plt Count 194 MPV 8.5 Neut # (Auto) 5.4 Lymph # (Auto) 1.6 [place] # (Auto) 0.7 Eos # (Auto) 0.4 Baso # (Auto) 0.1 Absolute Nucleated RBC 0.00 Nucleated RBC % 0.0 PT 26.2 H INR 2.5 H Sodium 138 Potassium 3.9 Chloride 103 Carbon Dioxide 27 Anion Gap 8.0 BUN 14 Creatinine 1.1 Estimated GFR (MDRD) 67 L Glucose 88 Calcium 9.8 Total Bilirubin 0.8 AST 20 ALT 21 Alkaline Phosphatase 60 Troponin I High Sens 6.9 Total Protein 7.3 Albumin 4.3 Globulin 3.0 Albumin/Globulin Ratio 1.4 Lipase 16 - Rads (name of study) chest xray Relevant Findings:: Prelim report reviewed, EMP independent interpretation of test (no acute process. ) PD Medical Decision Making - ED course Complexity details: reviewed results (chest xray without infiltrates. ECG okay with chronic RBBB and supraventricular bigeminy. Trop negative. ), considered differential (has had dyspnea for awhile, several months. With evaluation for cocnern of CAD as symptoms exertional/orthopneal. He states had ECHO about 3 months ago that was okay. Stress test was abnormal. So onto heart cath, done 4 days ago at [facility]. No occlusive vascular diseas (pt with discharge info).), d/w patient ED course: recent heart testing negative and he states heart cath 4 days ago with at most 30% stenoses So essnetially no CAD except atril fib intermittently. Presume therefore his dyspnea is pulmonary nd can try MDI for now pending further lung eval. His ECG is similar to prior ones. He did have some mild wheezing. I'm not sure what the Walk In was articularly concerned about. I did not get a warm handoff. Departure - Departure Disposition: 01 Home, Self Care Clinical Impression: Dyspnea Condition: Stable Record reviewed to determine appropriate education?: Yes Instructions: ED Dyspnea Shortness of Breath Follow-Up: Nereyda Stock FNP [Primary Care Provider] - LUC WILLARD MD [Physician No Access] - Prescriptions: Albuterol Sulf [Ventolin Hfa Inhaler] 2 puffs INH QID #1 each Comments: Your EKG appearance is similar to your prior EKGs with a bundle branch block and some extra beats. At the time of our EKG you are in sinus rhythm. You are likely in and out of A-fib which is okay as long as the rate is in the normal range which yours appears to be. You are also on the blood thinner Coumadin. I do not see any immediate change or abnormality in your EKG, again being similar to the prior ones you have had. Your chest x-ray does not show any signs of fluid collection or enlarged heart etc. Continue with your current usual medicines. Follow-up with Dr. Willard Friday as planned. Since there is no obvious signs of heart disease based on recent testing, I would suggest trying some empiric treatment for your lungs. Use the albuterol inhaler 2 puffs 3-4 times daily for the next several days to week and see if your breathing is improved overall. Also and lieu of the recent heart cath, I would not see any reason to take the nitroglycerin for any symptoms as I would not expect any improvement from that since there is no occlusive heart disease. Forms: PCP List Discharge Date/Time: 05/17/24 17:35
--- NOTE | 2024-05-17 16:21 | XRAY Report ---
PROCEDURE: Chest 1V INDICATIONS: Chest pain TECHNIQUE: One view of the chest was acquired. COMPARISON: 04/19/2024. FINDINGS: Surgical changes and devices: None. Lungs and pleura: Hazy left basilar opacity. No pneumothorax or effusions. Mediastinum: Mediastinal contours appear normal. Heart size is normal. Bones and chest wall: No suspicious bony lesions. Overlying soft tissues appear unremarkable. IMPRESSION: Hazy left basilar opacity, likely atelectasis, less likely infection. Reviewed by: Gil Ponce MD on 05/17/2024 4:20 PM PDT Approved by: Gil Ponce MD on 05/17/2024 4:20 PM PDT Station ID: [id number]
[2024-05-17 16:40] VITALS: BP 117/80
[2024-05-17 17:10] LABS: INR 2.5 (0.8-1.2); PT - PROTHROMBIN TIME 26.2 secs (9.9-12.6)
== END 2024-05-17 17:35 | disposition home or self-care (01) ==
LOC: ED 15:15
DX: R06.00 Dyspnea, unspecified (principal); I48.91 Unspecified atrial fibrillation; Z79.01 Long term (current) use of anticoagulants
CPT/HCPCS: 36415; 80053; 83690; 84484; 85025; 85610; 93005; 99284

== ENCOUNTER 2024-05-21 12:24 | Outpatient (CLI) | payer MEDICARE | END 2024-05-21 12:25 | disposition home or self-care (01) | LOC: LAB 12:24 | PROVIDERS: ATTEND Physician Assistant Medical | DX: I48.91 Unspecified atrial fibrillation (principal) | CPT/HCPCS: 36416; 85610 ==

== ENCOUNTER 2024-06-03 11:47 | Outpatient (CLI) | payer MEDICARE | END 2024-06-03 11:48 | disposition home or self-care (01) | LOC: LAB 11:47 | PROVIDERS: ATTEND Physician Assistant Medical | DX: I48.91 Unspecified atrial fibrillation (principal) | CPT/HCPCS: 36416; 85610 ==

== ENCOUNTER 2024-06-11 11:39 | Outpatient (CLI) | payer MEDICARE | END 2024-06-11 11:40 | disposition home or self-care (01) | LOC: LAB 11:39 | PROVIDERS: ATTEND Physician Assistant Medical | DX: I48.91 Unspecified atrial fibrillation (principal) | CPT/HCPCS: 36416; 85610 ==

== ENCOUNTER 2024-06-18 13:07 | Outpatient (CLI) | payer MEDICARE | END 2024-06-18 13:08 | disposition home or self-care (01) | LOC: LAB 13:07 | PROVIDERS: ATTEND Physician Assistant Medical | DX: I48.91 Unspecified atrial fibrillation (principal) | CPT/HCPCS: 36416; 85610 ==

== ENCOUNTER 2024-06-24 20:53 | Outpatient (CLI) | payer MEDICARE | END 2024-06-24 20:54 | disposition home or self-care (01) | LOC: LAB 20:53 | PROVIDERS: ATTEND Physician Assistant Medical | DX: I48.91 Unspecified atrial fibrillation (principal) | CPT/HCPCS: 36416; 85610 ==

== ENCOUNTER 2024-07-08 11:24 | Outpatient (CLI) | payer MEDICARE | END 2024-07-08 11:25 | disposition home or self-care (01) | LOC: RT 11:24 | PROVIDERS: ATTEND Internal Medicine Cardiovascular Disease | DX: I48.91 Unspecified atrial fibrillation (principal); I49.1 Atrial premature depolarization | CPT/HCPCS: 93005 ==

== ENCOUNTER 2024-07-12 14:19 | Outpatient (CLI) | payer MEDICARE | END 2024-07-12 14:20 | disposition home or self-care (01) | LOC: LAB 14:19 | PROVIDERS: ATTEND Physician Assistant Medical | DX: I48.91 Unspecified atrial fibrillation (principal) | CPT/HCPCS: 36416; 85610 ==

== ENCOUNTER 2024-07-26 10:48 | Outpatient (CLI) | payer MEDICARE ==
[2024-07-26 11:25] LABS: CALCIUM 9.1 mg/dL (8.5-10.3); CREATININE 1.2 mg/dL (0.6-1.3); MAGNESIUM 1.4 mg/dL (1.7-2.3)
== END 2024-07-26 10:49 | disposition home or self-care (01) ==
LOC: LAB 10:48
PROVIDERS: ATTEND Nurse Practitioner Family
DX: R06.09 Other forms of dyspnea (principal); I48.0 Paroxysmal atrial fibrillation
CPT/HCPCS: 36415; 80048; 83735; 85610

== ENCOUNTER 2024-08-10 15:02 | Outpatient (CLI) | payer MEDICARE ==
[2024-08-10 15:31] LABS: CALCIUM 9.1 mg/dL (8.5-10.3); CREATININE 1.2 mg/dL (0.6-1.3); MAGNESIUM 1.4 mg/dL (1.7-2.3); POTASSIUM 3.9 mmol/L (3.5-4.5)
== END 2024-08-10 15:03 | disposition home or self-care (01) ==
LOC: LAB 15:02
PROVIDERS: ATTEND Nurse Practitioner Family
DX: E83.42 Hypomagnesemia (principal)
CPT/HCPCS: 36415; 80048; 83735

== ENCOUNTER 2024-08-17 16:27 | Outpatient (CLI) | payer MEDICARE ==
--- NOTE | 2024-08-18 12:02 | Ultrasound Report ---
Renal (Retroperitoneal) HISTORY: KIDNEY STONES COMPARISON: None. TECHNIQUE: Ultrasound of the kidneys was performed. FINDINGS: Right Kidney: 10.5 cm in length. 1.4 cm in cortical thickness. Normal echogenicity. 0.8 cm hyperechoic focus at the upper pole of the renal pelvis, and 1.2 cm hyperechoic focus at the l ower pole of the right renal pelvis, without twinkling artifact, nonspecific. No hydronephrosis. Left Kidney: 10.8 cm in length. 1.5 cm in cortical thickness. Normal echogenicity. 0.6 cm hyperechoic focus at the upper pole of the renal pelvis and 0.8 cm hyperechoic focus at the lower pole of the re nal pelvis, without twinkling artifact, nonspecific. No hydronephrosis. Urinary Bladder:Prevoid volume of 137 cc. Postvoid residual 40 cc. Bilateral ureteral jets are noted. Additional Findings: Marked enlargement of the prostate, measuring 55 mL. IMPRESSION: 1.Multiple hyperechoic foci in bilateral renal pelvis, without twinkling artifact, nonspecific. No d efinitive renal stone. 2.No hydronephrosis of either kidney. 3.Markedly enlarged prostate. Reviewed by: Akila Robbins MD on 08/18/2024 12:01 PM PDT Approved by: Akila Robbins MD on 08/18/2024 12:01 PM PDT Station ID: [id number]
== END 2024-08-17 16:28 | disposition home or self-care (01) ==
LOC: DI 16:27
PROVIDERS: ATTEND Registered Nurse
DX: N20.0 Calculus of kidney (principal); N40.0 Benign prostatic hyperplasia without lower urinary tract symptoms

== ENCOUNTER 2024-08-20 17:15 | Outpatient (CLI) | payer MEDICARE ==
[2024-08-20 17:33] LABS: MAGNESIUM 1.7 mg/dL (1.7-2.3)
[2024-08-20 17:38] LABS: CALCIUM 9.4 mg/dL (8.5-10.3); CREATININE 1.2 mg/dL (0.6-1.3); POTASSIUM 3.9 mmol/L (3.5-4.5)
== END 2024-08-20 17:16 | disposition home or self-care (01) ==
LOC: LAB 17:15
PROVIDERS: ATTEND Nurse Practitioner Family
DX: I10 Essential (primary) hypertension (principal); R79.0 Abnormal level of blood mineral; I48.0 Paroxysmal atrial fibrillation
CPT/HCPCS: 36415; 80048; 83735